=== PATIENT | male | born 1945 ===

== ENCOUNTER 2021-08-01 11:53 | Inpatient (IN) | payer OTHER ==
--- NOTE | 2021-08-01 14:17 | R.PREADM ---
PRE-ADMISSION SCREENING FORM SCREENING DATE AND TIME 08/01/2021 12:33 (CDT) ANTICIPATED REHAB ADMISSION DATE 08/03/2021 REFERRING FACILITY [facility] REFERRAL DATE AND TIME 08/01/2021 12:34 (CDT) REFERRAL ROOM# [id number] ACUTE ADMIT DATE 07/27/2021 Previous Rehabilitation(s): No. ACUTE NURSE CLINICIAN/DC ASSISTANT PROFESSOR OF MARINE BIOLOGY Mer Patterson ATTENDING PHYSICIAN Vangie Zelaya REFERRING PHYSICIAN Vangie Zelaya REHAB FACILITY [facility] CLINICAL LIAISON Ana Paula Rosales PHYSICIAN REVIEWER Dr. Ryan Oleary M.D. MR# [id number] NAME Michele Covarrubias ADDRESS [address] PHONE ( ZIP [address] DATE OF 1945 AGE 76 SSN# [id number] GENDER male MARITAL STATUS RACE white ADMIT FROM 02 - [facility] PRE-HOSPITAL LIVING SETTING 01 - Home (private home/apt. board/care, assisted living, jail, transitional living) HOME TYPE AND DETAILS Type of home: single family house # of levels in the residence: 1 # of steps within the residence: 0 # of steps to enter the residence: 0 PRE-HOSPITAL LIVING WITH Alone FAMILY SUPPORT No PHONE PRIMARY FAMILY CONTACT ON ADM.? no IS PRIMARY FAMILY CONTACT AUTH. REP.? no PHONE 1ST CONTACT ON ADM. no IS 1ST CONTACT AUTH. REP.? no PHONE 2ND CONTACT ON ADM.? no PATIENT EMPLOYMENT STATUS Retired (for age) PATIENT EMPLOYER No Employer PAYOR INFORMATION: 1ST PAYOR NAME Medicare 1ST PAYOR PHONE 1ST PAYOR INJURY/ILLNESS DUE TO ACCIDENT? No ANOTHER GREEN PARTY RESPONSIBLE? No PRIMARY REHAB/ACUTE DIAGNOSIS: Acute Diastolic CHF ONSET DATE 07/27/2021 REHAB IMPAIRMENT CATEGORY (JOSE MANUEL): 14 Cardiac does NOT meet 60% rule PRIMARY DIAGNOSIS-RELATED SURGERIES: None INTERVENTIONS: - Bradycardia Monitor pt cardiac status regularly Regular physical assessment of patient - Acute Kidney Injury Monitor pt renal function/labs Daily Weights Administer medications as indicated Assess areas for edema Monitor pt cardiac/respiratory status regularly - Hyperkalemia Monitor cardiac, respiratory, neuromuscular, renal, and GI status Monitor pt labs Administer medications as indicated - Anasarca Daily Weights Monitor patient BP/HR/lung sounds Assess pt urine Assess for s/s cardiac and respiratory distress Assess areas for edema - Pain Administer prescribed pain medications Anticipate the need for pain medication for optimal pain managment Non pharmacological pain management - UTI Administer prescribed antibiotics, monitor effectiveness - CHF Monitor daily weights Monitor for signs of fluid overload RISK FOR COMPLICATIONS: - CHF Monitor pt for s/s cardiac/respiratory distress - DVT Active and Passive ROM exercises Assist patient with frequent position changes Elevate BLE - Skin Breakdown Encourage ambulation as tolerated Repositioning q 2 hours Use of pillows or foam wedges while in bed - Falls Assess for medication side effects Maintain call light within patient reach for easy access to nursing assistance Provide assistance getting out of bed and with ambulation Provide assistive devices - Fluid Overload Administer prescribed diuretics Monitor pt fluid intake - Stroke Monitor and maintain patient pain level Monitor patient blood pressure - Respiratory Failure Monitor pt O2 sats Administer supplemental O2 as needed - Cardiac Failure Monitor pt cardiac status - Aspiration Monitor for overt s/s of aspiration - Seizure Identify risk factors Administer prescribed medications and supplemental O2 Provide safety measures SUMMARY OF ACUTE HOSPITALIZATION: Pt. is a 76 yo white male. On 07/27/2021 he was admitted to [facility] with diagnosis Acute Diastolic CHF. His impairment category is Cardiac 09 - Cardiac Disorders (09). Pre-morbidly, Pt. was independent/mod-I in Locomotion and Self-Care; and he had good Safety Awareness , Balance, Transfers Control, Sphincter Control, and Endurance. Currently, he has deficits of Locomotion, Safety Awareness, Transfers Control, Sphincter Control, End urance, and Self-Care. Pt. is now referred to [facility] for acute in-patient rehabilitation in order to maximize patient's functional independence in activities of daily living, strength, ROM, and mobi lity. Patient has realistic goal of being discharged at assistance level 7-Ind to reside at Home with Pt s elf. PAST MEDICAL HISTORY CHF CAD HTN Gout Afib COPD PAST SURGICAL HISTORY: None MEDICATION ALLERGIES: No Known Drug Allergies (NKDA) ENVIRONMENTAL ALLERGIES: - Substance Allergies None Known - Other Allergies None Known CODE STATUS: Full code WEIGHT/HEIGHT/BMI: WEIGHT 205 lbs HEIGHT 5' 8" BMI 31.2 DIET: - Diet Type Regular - Diet - Solid Texture Regular - Diet - Liquid Texture Regular - Tube Feed N/A SKIN DIAGRAM: Laceration on Face; extent - small; stage - NS(Not Stageable). Treatment - Per Physician's Orders. REVIEW OF SYSTEMS: - Gen Alert and awake Lying in bed No apparent distress Oriented to: person, time, and place - Vital Signs Temperature: 97.6 F SBP/DBP: 122/67 Pulse: 74 Resp: 20 Vital signs stable, afebrile - CVS RRR VITAL SIGNS Temperature: 97.6 F SBP/DBP: 122/67 Pulse: 74 Resp: 20 Vital signs stable, afebrile 07/31/21 MEDICATIONS/TREATMENT: Other- See attached MAR (Medication Administration Record). CURRENT SPHINCTER CONTROL: Pre-hospital bladder status: unspecified # of bladder accidents in the last 7 days prior to screenin Pre-hospital bowel status: unspecified # of bowel accidents in the last 7 days prior to screenin Last Bowel Movement Date: 08/01/2021 CURRENT LOCOMOTION STATUS: distance walked 2 feet DETAILED CURRENT FUNCTIONAL STATUS: - Bladder accident frequency: 7-Ind - No accidents in the past 7 days - Bowel accident frequency: 7-Ind - No accidents in the past 7 days - Walking score based on distance walked: 0(N/A) score based on distance walked: 1(<=50ft) - Wheelchair score based on distance traveled: 0(N/A) QI SCORES: - Self-Care A. Eating 06-Independent B. Oral hygiene 06-Independent C. Toileting hygiene 01-Dependent E. Shower/bathe self 03-Partial/moderate assistance F. Upper body dressing 06-Independent G. Lower body dressing 03-Partial/moderate assistance H. Putting on/taking off footwear 03-Partial/moderate assistance - Mobility A. Roll left and right 04-Supervision or touching assistance B. Sit to lying 04-Supervision or touching assistance C. Lying to sitting on side of bed 03-Partial/moderate assistance D. Sit to stand 04-Supervision or touching assistance E. Chair/nin-bu-twbns transfer 04-Supervision or touching assistance F. Toilet transfer 04-Supervision or touching assistance G. Car transfer 04-Supervision or touching assistance I. Walk 10 feet 88-Not attempted due to medical condition or safety concerns J. Walk 50 feet with two turns 88-Not attempted due to medical condition or safety concerns K. Walk 150 feet 88-Not attempted due to medical condition or safety concerns L. Walking 10 feet on uneven surfaces 88-Not attempted due to medical condition or safety concerns M. 1 step (curb) 88-Not attempted due to medical condition or safety concerns N. 4 steps 88-Not attempted due to medical condition or safety concerns O. 12 steps 88-Not attempted due to medical condition or safety concerns P. Picking up object 88-Not attempted due to medical condition or safety concerns R. Wheel 50 feet with two turns 09-Not applicable S. Wheel 150 feet 09-Not applicable - Bladder and Bowel Bladder continence 0-Always continent Bowel continence 2-Frequently incontinent - Endurance Fair - Balance Fair - Safety Awareness Fair CURRENT FUNC. DEFICITS: Mobility, Endurance, Balance, Safety Awareness, and Self-Care HISTORY OF FALLS. HAS THE PATIENT HAD TWO OR MORE FALLS IN THE PAST YEAR OR ANY FALL WITH INJURY IN T HE PAST YEAR?: Yes PRIOR SURGERY. DID THE PATIENT HAVE MAJOR SURGERY DURING THE 100 DAYS PRIOR TO ADMISSION?: No THERAPY NOTES FROM ACUTE CARE: Attached. SPECIAL NEEDS: - Safety Concerns Skin breakdown and Fall precautions needed due to skin breakdown risk, Poor balance, Fall history, an d Risk of injury - IV inserted on unknown - Respiratory Supplemental oxygen: 3 liters Nasal [place] - Fall Precautions Due to poor balance PRECAUTIONS: - Fall Precaution Bed alarm TABS alarm Wheel chair alarm - Incontinence Bowel Incontinence - DVT Risk due to restricted mobility, age, and obesity - Bleeding Risk Eliquis - Skin Breakdown Risk due to restricted mobility and age - Cardiac Precaution Monitor blood pressure, heart rate, lower extremity edema, notify MD for shortness of breath or chest pain Monitor patient for excessive elevation of heart rate and blood pressure during therapy PATIENT NEEDS ACTIVE AND ONGOING THERAPEUTIC INTERVENTION OF MULTIPLE THERAPY DISCIPLINES, INCLUDING: - Dietary and Nutrition Adequate Nutrition. Nutritional Education. Nutritional Supplements. - Occupational Therapy Cognitive Retraining. Patient needs Occupational Therapy for a daily minimum of 1.5 hours at least 5 out of 7 days, to improve Activities of Daily Living, including: Eating, Grooming, Bathing, Dressing, Toileting, Toilet Transfers, Community Reintegration, Higher functional activities, Adaptive Equipme nt, Splinting, Household Tasks, and Other activities as determined. Visual Perceptual Training. - Speech Therapy Cognitive Training. Expressive Language Skills. Memory Strategies. Patient needs Speech Therapy for a daily minimum of 1.5 hours at least 5 out of 7 days, to improve: Swallowing, Cognition, Language Ski lls, and Compensatory Strategies. Receptive Language Skills. Speech Intelligibility Training. - Physical Therapy Patient needs Physical Therapy for a daily minimum of 1.5 hours at least 5 out of 7 days, to improve: Mobility, Strengthening, Transfers, Stretching, ROM, Endurance, Ability to manage stairs, Gait, and Balance. PATIENT NEEDS CLOSE MEDICAL SUPERVISION BY A REHABILITATION PHYSICIAN FOR: Coordination of Treatment Team Respiratory/Airway Management Bowel and Bladder Management Medical and Co-Morbidity Management Pain Management PATIENT REQUIRES 24X7 REHAB NURSING FOR MEDICAL AND FUNCTIONAL MGT. OF THE FOLLOWING DEFICITS: Patient requires 24x7 Rehabilitation Nursing for: Pain Issues, Identifying and preventing risk factor s, Monitoring and reporting current medical conditions, Assisting with ambulation and transfer, Maura ting with all ADL-s, Teaching patients about disease process and medications, Family teaching, Provid ing safe environment, Bowel and Bladder Issues, Skin Integrity, and Medication Management PATIENT REQUIRES INTENSIVE, COORDINATED INTERDISCIPLINARY APPROACH TO REHAB: Patient needs Dietary and Nutrition Services for: Adequate Nutrition, Nutritional Supplements, and Nu tritional Education Patient needs Squirt Machine Operator and/or Case Management for: Discharge Planning, Arranging Home Equipmen t or Services, and Family Interventions PATIENT REHAB POTENTIAL: Shira Covarrubias is able and expected to receive 3 hours of individualized therapy daily on at least 5 of ev glenn 7 days Shira Covarrubias's prognosis for significant practical improvement within a reasonable period of time appear s Good Expected level of measurable improvement will be of a practical value to Shira Covarrubias's functional capac ity or adaptations to impairments Has a viable Discharge Plan Medically appropriate; condition is sufficiently stable to participate in intensive rehab program DISCHARGE PLAN: - Estimated Length of Stay (days) 10. - Consensus on plan Discharge plan has been discussed with primary caregiver. Patient/Family is in agreement with the jose manuel n. Primary caregiver is in agreement with the plan. - Patient/Family Goals Return home independently. - Potential barriers to discharge Any lines must be removed or patient/caregiver needs to be educated on line care. - Planned Living Setting Upon Discharge Home, to live alone. Transitional Living. Primary caregiver: Pt self. RECOMMENDED CARE LEVEL: IRF RECOMMENDATION DETAILS: Recommended Admission to Comprehensive Rehabilitation Program to Increase Functional [place] SCREENER'S COMPLETENESS CONFIRMATION: - Screening Confirmation The patient data collection on this preadmission screening form is finished PHYSICIANS REVIEW AND ADMISSION DETERMINATION Admit - Based on my review of the Pre-Admission Screening results, in my medical judgment and experie nce, I concur with the findings and recommend admission to [facility], as this patient requires an IRF level of care. SIGNATURE PANEL: Clinical Liaison - [electronically] signed by Ana Paula Rosales on 08/01/2021 at 13:24 (CDT) Physician Reviewer - [electronically] signed by Dr. Ryan Oleary M.D. on 08/01/2021 at 14:16 (CDT )
[2021-08-02 04:48] LABS: Hematocrit 32.5 % (39.6-49.0); Lymphocytes % 27.9 % (15.3-44.8); MPV 7.7 fL (7.6-11.3); RBC Red Blood Cell Count 3.66 M/uL (4.33-5.43)
[2021-08-02 05:24] LABS: Albumin 2.9 g/dL (3.4-5.0); Magnesium 1.9 mg/dL (1.8-2.4); Prealbumin 15.6 mg/dL (20-40)
[2021-08-02 05:25] LABS: Potassium 2.7 mmol/L (3.5-5.1)
[2021-08-02 05:41] LABS: Urine Appearance Clear (Clear); Urine Bilirubin Negative (Negative); Urine Blood 2+ (Negative); Urine Color Yellow (Yellow); Urine Glucose Negative (Negative); Urine Protein 2+ (Negative); Urine pH 7.5 (5.0-7.0)
[2021-08-02 05:43] LABS: Urine Microscopic Reflex ORDER UMIC
[2021-08-02] MEDS ORDERED: POTASSIUM CL SA 10 MEQ TAB PO ONE ×2 (05:49→06:00)
[2021-08-02 05:54] LABS: Urine Bacteria >50 /HPF (NONE SEEN)
[2021-08-02 05:56] VITALS: BMI 29.4
[2021-08-02] MEDS: APIXABAN 5 MG TABLET PO SCH ×2 (07:09→20:24)
[2021-08-02] MEDS ORDERED: TAMSULOSIN 0.4 MG SR CAP PO SCH (08:00)
[2021-08-02] MEDS ORDERED: ATORVASTATIN 20 MG TAB PO SCH (08:00)
[2021-08-02] MEDS: FUROSEMIDE 40 MG TABLET PO SCH ×2 (08:34→16:58)
[2021-08-02] MEDS: POTASSIUM CL SA 10 MEQ TAB PO SCH ×2 (08:35→16:58)
[2021-08-02] MEDS: allopurinoL 300 MG TAB PO SCH (08:41)
[2021-08-02] MEDS ORDERED: LOPERAMIDE HCL 2 MG CAPSULE PO PRN (13:53)
--- NOTE | 2021-08-02 18:14 | R.HP ---
HISTORY AND PHYSICAL FACILITY: [facility] ENCOUNTER DATE AND TIME: 08/02/2021 18:06 (CDT) MR#: [id number] NAME Michele Covarrubias ADDRESS: [address] [place] [address] CITY: [place]IP [address] PHONE: ( DATE OF : 1945 AGE: 76 SSN# [id number] GENDER: Male DEXTERITY Unknown dexterity MARITAL STATUS RACE White PRE-HOSPITAL LIVING SETTING 01 - Home (private home/apt. board/care, assisted living, [facility], transitional living) PRE-HOSPITAL LIVING WITH Alone ENCOUNTER PHYSICIAN: Dr. Ryan Oleary M.D. REFERRING DOCTOR: evi Zelaya DATE OF ADMISSION: 08/01/2021 22:00 (CDT) REFERRING FACILITY [facility] HOME TYPE AND DETAILS: Type of home: single family house # of levels in the residence: 1 # of steps within the residence: 0 # of steps to enter the residence: 0 ONSET DATE: 07/27/2021 PRIMARY DIAGNOSIS-RELATED SURGERIES: None HISTORY OF PRESENT ILLNESS (HPI): Pt. is a 76 yo white male. On 07/27/2021 he was admitted to [facility] with diagnosis Acute Diastolic CHF. His impairment category is Cardiac 09 - Cardiac Disorders (09). Pre-morbidly, Pt. was independent/mod-I in Locomotion and Self-Care; and he had good Safety Awareness , Balance, Transfers Control, Sphincter Control, and Endurance. Currently, he has deficits of Locomotion, Safety Awareness, Transfers Control, Sphincter Control, End urance, and Self-Care. Pt. is now referred to [facility] for acute in-patient rehabilitation in order to maximize patient's functional independence in activities of daily living, strength, ROM, and mobi lity. Patient has realistic goal of being discharged at assistance level 7-Ind to reside at Home with Pt s elf. MEDICATION ALLERGIES: No Known Drug Allergies (NKDA) ENVIRONMENTAL ALLERGIES: - Substance Allergies None Known - Other Allergies None Known PAST MEDICAL HISTORY: CHF CAD HTN Gout Afib COPD PAST SURGICAL HISTORY: None SOCIAL HISTORY: - Home Living Alone REVIEW OF SYSTEMS: - Gen No Chills Fatigue No Fever - Eyes No Double Vision No itchiness - ENMT No Difficulty Swallowing - CVS No Chest Discomfort No Chest Pain Fatigue No Weight Gain - Resp No Cough Shortness of Breath - GI Continent No Abdominal Pain No Constipation Diarrhea - Continent No Kidney Pain No Painful Urination No Urinary Urgency - MSK No Joint Pain Muscle Cramps Stiffness - Skin No Itching No Rash No Suspicious Lesions - Neuro Coordination Difficulty No Difficulty with Concentration No Memory Loss No Seizures Weakness - Psych No Anxiety No Depression No HIV Exposure No Persistent Infections No Seasonal Allergies - Endo No Cold/Heat Intolerance No Excessive Hunger No Excessive Thirst No Excessive Urination PHYSICAL EXAM - Gen Alert and awake Lying in bed No apparent distress Oriented to: person, time, and place - Skin No skin breakdown. No abnormalities - Eyes No abnormalities - ENMT No abnormalities - Neck No abnormalities - CVS RRR - Chest No abnormalities - Resp Clear to auscultation - Abd Soft - GI nondistended Deferred - No abnormalities - Ext Mild bilateral lower extremity edema. - MSK 4+/5 weakness in both lower extremities. - Neuro No focal deficits - Psych No abnormalities VITAL SIGNS Temperature: 97.8 F SBP/DBP: 164/71 Pulse: 80 Resp: 16 NURSING: - Shower allowing shower PRECAUTIONS: - Fall Precaution Bed alarm TABS alarm Wheel chair alarm - Incontinence Bowel Incontinence - DVT Risk due to restricted mobility, age, and obesity - Bleeding Risk Eliquis - Skin Breakdown Risk due to restricted mobility and age - Cardiac Precaution Monitor blood pressure, heart rate, lower extremity edema, notify MD for shortness of breath or chest pain Monitor patient for excessive elevation of heart rate and blood pressure during therapy ACTIVITIES OOB only with supervision QI SCORES: - Self-Care A. Eating 06-Independent B. Oral hygiene 06-Independent C. Toileting hygiene 01-Dependent E. Shower/bathe self 03-Partial/moderate assistance F. Upper body dressing 06-Independent G. Lower body dressing 03-Partial/moderate assistance H. Putting on/taking off footwear 03-Partial/moderate assistance - Mobility A. Roll left and right 04-Supervision or touching assistance B. Sit to lying 04-Supervision or touching assistance C. Lying to sitting on side of bed 03-Partial/moderate assistance D. Sit to stand 04-Supervision or touching assistance E. Chair/ptb-eg-[id number] transfer 04-Supervision or touching assistance F. Toilet transfer 04-Supervision or touching assistance G. Car transfer 04-Supervision or touching assistance I. Walk 10 feet 88-Not attempted due to medical condition or safety concerns J. Walk 50 feet with two turns 88-Not attempted due to medical condition or safety concerns K. Walk 150 feet 88-Not attempted due to medical condition or safety concerns L. Walking 10 feet on uneven surfaces 88-Not attempted due to medical condition or safety concerns M. 1 step (curb) 88-Not attempted due to medical condition or safety concerns N. 4 steps 88-Not attempted due to medical condition or safety concerns O. 12 steps 88-Not attempted due to medical condition or safety concerns P. Picking up object 88-Not attempted due to medical condition or safety concerns R. Wheel 50 feet with two turns 09-Not applicable S. Wheel 150 feet 09-Not applicable - Bladder and Bowel Bladder continence 0-Always continent Bowel continence 2-Frequently incontinent - Endurance Fair - Balance Fair - Safety Awareness Fair CURRENT FUNC. DEFICITS: Mobility, Endurance, Balance, Safety Awareness, and Self-Care MEDICATIONS: - Other See attached MAR (Medication Administration Record) ASSESSMENT: Pt. is a 76 yo white male.On 07/27/2021 he was admitted to [facility] with diagnosis Acute Di astolic CHF.His impairment category is Cardiac 09 - Cardiac Disorders ().Pre-morbidly, Pt. was ind ependent/mod-I in Locomotion and Self-Care; and he had good Safety Awareness, Balance, Transfers Cont rol, Sphincter Control, and Endurance.Currently, he has deficits of Locomotion, Safety Awareness, Tra nsfers Control, Sphincter Control, Endurance, and Self-Care.Pt. is now referred to [facility] for acute in-patient rehabilitation in order to maximize patient's functional indepen dence in activities of daily living, strength, ROM, and mobility.- Rehab Goal Patient has realistic goal of being discharged at assistance level 7-Ind to reside at Home with Pt s elf. - Physical Therapy Gait dysfunction - to improve, our physical therapists will perform initial evaluation of pt's status upon admission and devise an individualized program for Gait Training, and Wheel Chair mobility Inability to transfer - to improve, our physical therapists will perform initial evaluation of pt's s tatus upon admission and devise an individualized program for Bed mobility Need for home safety evaluation - to improve, our physical therapists will perform initial evaluation of pt's status upon admission and devise an individualized program for Home Evaluation Need in caregiver upon discharge - to improve, our physical therapists will perform initial evaluatio n of pt's status upon admission and devise an individualized program for Caregiver Training Edema - to improve, our physical therapists will perform initial evaluation of pt's status upon admi ssion and devise an individualized program for Elevation Training, and Lymphedema Therapy New precaution - to improve, our physical therapists will perform initial evaluation of pt's status u alin admission and devise an individualized program for Patient precaution education Poor endurance - to improve, our physical therapists will perform initial evaluation of pt's status u alin admission and devise an individualized program for Endurance Training Weakness - to improve, our physical therapists will perform initial evaluation of pt's status upon ad mission and devise an individualized program for Aquatic Therapy, Neuromuscular Reeducation, and Stre ngthening Achieving independence - to improve, our physical therapists will perform initial evaluation of pt's status upon admission and devise an individualized program for Community Reintegration Activities - Occupational Therapy ADL deficits - to improve, our occupation therapists will perform initial evaluation of pt's status u alin admission and devise an individualized program for Bathing, Bed mobility, Community Reintegration , Cooking, Dressing, Eating, Fine Motor Skills, Grooming, Homemaking, Kitchen Mobility, Laundry, Natasha ent Education, Safety Awareness, Splinting - Positioning, Transfers(Toilet, Tub, Shower), and Wheel C hair Management Need for post anesthesia care unit nurse - to improve, our occupation therapists will perform initial evaluation of pt's s tatus upon admission and devise an individualized program for Caregiver Training Weakness - to improve, our occupation therapists will perform initial evaluation of pt's status upon admission and devise an individualized program for Aquatic Therapy, Balance, Endurance, UE ROM, and U E strengthening MEDICAL PLAN: - Diet Type Start Regular - Diet - Liquid Texture Start Regular - Tube Feed Start N/A - Incontinence Bowel Incontinence - Bleeding Risk Eliquis - DVT Risk due to restricted mobility, age, and obesity - Skin Breakdown Risk due to restricted mobility and age - Cardiac Precaution Monitor blood pressure, heart rate, lower extremity edema, notify MD for shortness of breath or ches t pain Monitor patient for excessive elevation of heart rate and blood pressure during therapy - Fall Precaution Bed alarm TABS alarm Wheel chair alarm - Other See attached MAR (Medication Administration Record) - Diet - Solid Texture Regular - Shower shower DISCHARGE PLAN: - Estimated Length of Stay (days) 10. - Consensus on plan Discharge plan has been discussed with primary caregiver. Patient/Family is in agreement with the jose manuel n. Primary caregiver is in agreement with the plan. - Patient/Family Goals Return home independently. - Potential barriers to discharge Any lines must be removed or patient/caregiver needs to be educated on line care. - Planned Living Setting Upon Discharge Home, to live alone. Transitional Living. Primary caregiver: Pt self. SIGNATURE PANEL: (CDT)
--- NOTE | 2021-08-02 18:15 | PAPE ---
POST ADMISSION PHYSICIAN EVALUATION PATIENT: [facility] MR# [id number] REFERRING DOCTOR evi Zelaya EVALUATION DATE AND TIME 08/02/2021 18:13 (CDT) NAME Michele Covarrubias DATE OF 1945 AGE 76 PHONE ( SSN# [id number] GENDER male EVALUATING PHYSICIAN Dr. Ryan Oleary M.D. ADMISSION DIAGNOSIS: Acute Diastolic CHF ONSET DATE 07/27/2021 POST-ADMISSION FUNCTIONAL/MEDICAL STATUS: - Bladder Same accident frequency: 7-Ind - No accidents in the past 7 days - Bowel Same accident frequency: 7-Ind - No accidents in the past 7 days - Walking Same score based on distance walked: 0(N/A) Same score based on distance walked: 1(<=50ft) - Wheelchair Same score based on distance traveled: 0(N/A) STATUS CHANGE EVALUATION: No change in Functional or Medical Status is identified compared with Pre-Admission screening. PATIENT NEEDS CLOSE MEDICAL SUPERVISION BY A REHABILITATION PHYSICIAN FOR: Coordination of Treatment Team Respiratory/Airway Management Bowel and Bladder Management Medical and Co-Morbidity Management Pain Management PATIENT REQUIRES 24X7 REHAB NURSING FOR MEDICAL AND FUNCTIONAL MGT. OF THE FOLLOWING DEFICITS: Patient requires 24x7 Rehabilitation Nursing for: Pain Issues, Identifying and preventing risk factor s, Monitoring and reporting current medical conditions, Assisting with ambulation and transfer, Maura ting with all ADL-s, Teaching patients about disease process and medications, Family teaching, Provid ing safe environment, Bowel and Bladder Issues, Skin Integrity, and Medication Management PATIENT REQUIRES INTENSIVE, COORDINATED INTERDISCIPLINARY APPROACH TO REHAB: Patient needs Dietary and Nutrition Services for: Adequate Nutrition, Nutritional Supplements, and Nu tritional Education Patient needs Sports Therapist and/or Case Management for: Discharge Planning, Arranging Home Equipmen t or Services, and Family Interventions LIST OF IDENTIFIED AND POTENTIAL PROBLEMS: Alteration in air exchange Alteration in leisure activities Bladder, Incontinence Bowel, Incontinence Falls, Actual or Potential Infection, Actual or Potential Mobility Impaired Pain, Alteration in Comfort Self Care Deficit Skin Integrity, Actual or Potential Urinary Tract Infection (UTI), Actual or Potential RISK FOR COMPLICATIONS - CHF Monitor pt for s/s cardiac/respiratory distress. - DVT Active and Passive ROM exercises. Assist patient with frequent position changes. Elevate BLE. - Skin Breakdown Encourage ambulation as tolerated. Repositioning q 2 hours. Use of pillows or foam wedges while in be d. - Falls Assess for medication side effects. Maintain call light within patient reach for easy access to nursi ng assistance. Provide assistance getting out of bed and with ambulation. Provide assistive devices. - Fluid Overload Administer prescribed diuretics. Monitor pt fluid intake. - Stroke Monitor and maintain patient pain level. Monitor patient blood pressure. - Respiratory Failure Monitor pt O2 sats. Administer supplemental O2 as needed. - Cardiac Failure Monitor pt cardiac status. - Aspiration Monitor for overt s/s of aspiration. - Seizure Identify risk factors. Administer prescribed medications and supplemental O2. Provide safety measures . INTERVENTIONS - Bradycardia Monitor pt cardiac status regularly. Regular physical assessment of patient. - Acute Kidney Injury - Hyperkalemia - Anasarca - Pain Administer prescribed pain medications. Anticipate the need for pain medication for optimal pain mary gment. Non pharmacological pain management. - UTI Administer prescribed antibiotics, monitor effectiveness. - CHF PATIENT COULD BE AT RISK FOR COMPLICATIONS FROM ADVERSE MEDICAL CONDITIONS DUE TO HIS/HER COMORBIDITI ES AND THE RIGORS OF THE INTENSIVE REHABILLITATION PROGRAM. METHODS OR INTERVENTIONS TO AVOID COMPLIC ATIONS INCLUDE: - Infection Clinical staff to assess and manage the signs and symptoms of infection including fever, redness, war mth, etc. - Urinary Tract Infection - Falls Patient will be evaluated for Fall Precautions and will be placed on Fall Precautions as indicated pe r protocol. - Skin Breakdown Nursing will assess skin daily using assessment tool and will place on Skin Breakdown Precautions as indicated per protocol. - Pain Clinical staff may employ non-medication methods such as massage, distraction, decrease stimulus, etc . as needed. Clinical staff will assess patient's pain level every shift per protocol to assess and e nsure pain management effectiveness. Medications will be given and the pain level re-assessed. PRELIMINARY PLAN OF CARE: - Physical Therapy Patient needs Physical Therapy for a daily minimum of 1.5 hours at least 5 out of 7 days, to improve: Mobility, Strengthening, Transfers, Stretching, ROM, Endurance, Ability to manage stairs, Gait, and Balance. - Speech Therapy Patient needs Speech Therapy for a daily minimum of 0.5 hours at least 5 out of 7 days, to improve: S wallowing, Cognition, Language Skills, and Compensatory Strategies. - Rehabilitation Nursing Patient requires 24x7 Rehabilitation Nursing for: Pain Issues, Identifying and preventing risk factor s, Monitoring and reporting current medical conditions, Assisting with ambulation and transfer, Maura ting with all ADL-s, Teaching patients about disease process and medications, Family teaching, Provid ing safe environment, Bowel and Bladder Issues, Skin Integrity, and Medication Management. Patient needs Sports Therapist and/or Case Management for: Discharge Planning, Arranging Home Equipmen t or Services, and Family Interventions. - Dietary and Nutrition Services Patient needs Dietary and Nutrition Services for: Adequate Nutrition, Nutritional Supplements, and Nu tritional Education. - Occupational Therapy Patient needs Occupational Therapy for a daily minimum of 1.5 hours at least 5 out of 7 days, to impr ove Activities of Daily Living, including: Eating, Grooming, Bathing, Dressing, Toileting, Toilet Tra nsfers, Community Reintegration, Higher functional activities, Adaptive Equipment, Splinting, Househo ld Tasks, and Other activities as determined. QI SCORES: - Self-Care A. Eating 06-Independent B. Oral hygiene 06-Independent C. Toileting hygiene 01-Dependent E. Shower/bathe self 03-Partial/moderate assistance F. Upper body dressing 06-Independent G. Lower body dressing 03-Partial/moderate assistance H. Putting on/taking off footwear 03-Partial/moderate assistance - Mobility A. Roll left and right 04-Supervision or touching assistance B. Sit to lying 04-Supervision or touching assistance C. Lying to sitting on side of bed 03-Partial/moderate assistance D. Sit to stand 04-Supervision or touching assistance E. Chair/[id number] transfer 04-Supervision or touching assistance F. Toilet transfer 04-Supervision or touching assistance G. Car transfer 04-Supervision or touching assistance I. Walk 10 feet 88-Not attempted due to medical condition or safety concerns J. Walk 50 feet with two turns 88-Not attempted due to medical condition or safety concerns K. Walk 150 feet 88-Not attempted due to medical condition or safety concerns L. Walking 10 feet on uneven surfaces 88-Not attempted due to medical condition or safety concerns M. 1 step (curb) 88-Not attempted due to medical condition or safety concerns N. 4 steps 88-Not attempted due to medical condition or safety concerns O. 12 steps 88-Not attempted due to medical condition or safety concerns P. Picking up object 88-Not attempted due to medical condition or safety concerns R. Wheel 50 feet with two turns 09-Not applicable S. Wheel 150 feet 09-Not applicable - Bladder and Bowel Bladder continence 0-Always continent Bowel continence 2-Frequently incontinent - Endurance Fair - Balance Fair - Safety Awareness Fair POTENTIAL FUNCTIONAL GOALS FOR PATIENT TO ACHIEVE BY DISCHARGE: - Safety Precaution Patient will remain free from falls or injury at time of discharge. - Bed Mobility Patient will perform bed mobility at 4-Mickey level of assistance. - Transfers Patient will complete transfers from bed to chair at 4-Mickey level of assistance. - Mobility Patient will ambulate 150 ft with 4-Mickey level of assistance with RW. PATIENT REHAB POTENTIAL Shira Covarrubias is able and expected to receive 3 hours of individualized therapy daily on at least 5 of ev glenn 7 days Shira Covarrubias's prognosis for significant practical improvement within a reasonable period of time appear s Good Expected level of measurable improvement will be of a practical value to Shira Covarrubias's functional capac ity or adaptations to impairments Has a viable Discharge Plan Medically appropriate; condition is sufficiently stable to participate in intensive rehab program DISCHARGE PLAN: - Estimated Length of Stay (days) 10. - Consensus on plan Discharge plan has been discussed with primary caregiver. Patient/Family is in agreement with the jose manuel n. Primary caregiver is in agreement with the plan. - Patient/Family Goals Return home independently. - Potential barriers to discharge Any lines must be removed or patient/caregiver needs to be educated on line care. - Planned Living Setting Upon Discharge Home, to live alone. Transitional Living. Primary caregiver: Pt self. CONCLUSION ON REHABILITATION NECESSITY: I have evaluated patient's pre-admission functional status and, comparing it to the patient's post-ad mission functional status now, I conclude that the pre-admission assessment was accurate. Patient's c ondition on admission supports the medical necessity of admission to IR[facility]. It is safe to proceed with patient's therapy program. SIGNATURE PANEL: (CDT)
[2021-08-02] MEDS: ATORVASTATIN 20 MG TAB PO SCH (20:24)
[2021-08-02] MEDS: TERAZOSIN HCL 1 MG CAP PO SCH (20:25)
[2021-08-02] MEDS: TAMSULOSIN 0.4 MG SR CAP PO SCH (20:25)
[2021-08-03] MEDS: APIXABAN 5 MG TABLET PO SCH ×2 (07:04→19:36)
[2021-08-03] MEDS: POTASSIUM CL SA 10 MEQ TAB PO SCH ×2 (07:54→16:33)
[2021-08-03] MEDS: FUROSEMIDE 40 MG TABLET PO SCH ×2 (07:55→16:45)
[2021-08-03] MEDS: allopurinoL 300 MG TAB PO SCH (07:55)
--- NOTE | 2021-08-03 10:13 | P.RH.PN ---
Estimated Length of Stay: 11 Expected Discharge Date: 08/12/21 Discharge Disposition Plan: Home Family Support: Yes Residential Goal: Mobility, Transfers, Self Care Vital Signs: Last Vital Signs Temp 97.3 F 08/03/21 07:59 Pulse 66 08/03/21 07:59 Resp 17 08/03/21 07:59 BP 172/60 H 08/03/21 07:59 Pulse Ox 97 08/03/21 07:59 Laboratory: Laboratory Last Values WBC 3.5 K/uL (4.3-10.9) L 08/02/21 04:32 RBC 3.66 M/uL (4.33-5.43) L 08/02/21 04:32 Hgb 10.8 g/dL (13.6-17.9) L 08/02/21 04:32 Hct 32.5 % (39.6-49.0) L 08/02/21 04:32 MCV 88.7 fL (80-100) 08/02/21 04:32 MCH 29.5 pg (27.0-35.0) 08/02/21 04:32 MCHC 33.2 g/dL (32.0-36.0) 08/02/21 04:32 RDW 17.0 % (12.1-15.2) H 08/02/21 04:32 Plt Count 115 K/uL (152-406) L 08/02/21 04:32 MPV 7.7 fL (7.6-11.3) 08/02/21 04:32 Neutrophils % 59.0 % (41.7-73.7) 08/02/21 04:32 Lymphocytes % 27.9 % (15.3-44.8) 08/02/21 04:32 Monocytes % 8.7 % (3.3-12.3) 08/02/21 04:32 Eosinophils % 3.9 % (0-4.4) 08/02/21 04:32 Basophils % 0.5 % (0-1.3) 08/02/21 04:32 Absolute Neutrophils 2.1 K/uL (1.8-8.0) 08/02/21 04:32 Absolute Lymphocytes 1.0 K/uL (0.7-4.9) 08/02/21 04:32 Absolute Monocytes 0.3 K/uL (0.1-1.3) 08/02/21 04:32 Absolute Eosinophils 0.1 K/uL (0-0.5) 08/02/21 04:32 Absolute Basophils 0.0 K/uL (0-0.5) 08/02/21 04:32 Sodium 137 mmol/L (136-145) 08/03/21 06:12 Potassium 3.0 mmol/L (3.5-5.1) L 08/03/21 06:12 Chloride 97 mmol/L (98-107) L 08/03/21 06:12 Carbon Dioxide 38 mmol/L (21-32) H 08/03/21 06:12 Anion Gap 5.0 mEq/L (5.0-15.0) 08/03/21 06:12 BUN 17 mg/dL (7-18) 08/03/21 06:12 Creatinine 0.94 mg/dL (0.55-1.3) 08/03/21 06:12 Est GFR (CKD-EPI) 83 ml/min (=/>90) L 08/03/21 06:12 Glucose 94 mg/dL (74-106) 08/03/21 06:12 Calcium 8.6 mg/dL (8.5-10.1) 08/03/21 06:12 Magnesium 1.9 mg/dL (1.8-2.4) 08/02/21 04:32 Albumin 2.9 g/dL (3.4-5.0) L 08/02/21 04:32 Prealbumin 15.6 mg/dL (20-40) L 08/02/21 04:32 Urine Color Yellow (Yellow) 08/02/21 05:38 Urine Appearance Clear (Clear) 08/02/21 05:38 Urine pH 7.5 (5.0-7.0) H 08/02/21 05:38 Ur Specific [place] 1.020 (1.005-1.030) 08/02/21 05:38 Glucose (UA)(Auto) Negative (Negative) 08/02/21 05:38 Urine Ketones Negative (Negative) 08/02/21 05:38 Urine Blood 2+ (Negative) H 08/02/21 05:38 Urine Nitrite Negative (Negative) 08/02/21 05:38 Urine Bilirubin Negative (Negative) 08/02/21 05:38 Urine Urobilinogen 2.0 mg/dL (0.2-1.0) H 08/02/21 05:38 Ur Leukocyte Esterase 2+ (Negative) H 08/02/21 05:38 Urine RBC 10-20 /HPF (NONE SEEN) H 08/02/21 05:38 Urine WBC 10-20 /HPF (<5) H 08/02/21 05:38 Ur Squamous Epith Cells [employer] 08/02/21 05:38 Urine Bacteria >50 /HPF (NONE SEEN) H 08/02/21 05:38 Urine Culture Reflexed Not needed 08/02/21 05:38 Urine Total Protein 2+ (Negative) H 08/02/21 05:38 SARS-CoV-2 Rap RNA(RT-PCR) Negative (NEGATIVE) 08/01/21 23:00 Weight: 193 lb 4.8 oz Wound Present: Yes Closed Surgical Incision Present: No Negative Pressure Wound Therapy Present: No Physician Update: Min assist bed mobility, 250' with CGA using RW. Mild aphasia with speech therapy. Grooming, bathing, upper body dressing at setup. Max assistance for toileting. Summary: Patient's care plan and penitentiary goals have been reviewed and revised as necessary. Please see the Rehabilitation Signature page for all necessary signatures.
[2021-08-03] MEDS ORDERED: POTASSIUM CL SA 10 MEQ TAB PO ONE (12:00)
[2021-08-03] MEDS: CRANBERRY FRUIT EXTRACT 400 MG CAP PO SCH (19:36)
[2021-08-03] MEDS: TAMSULOSIN 0.4 MG SR CAP PO SCH (19:36)
[2021-08-03] MEDS: DOCUSATE NA/SENNA CONC 1 TAB PO PRN (19:37)
[2021-08-03] MEDS: ATORVASTATIN 20 MG TAB PO SCH (19:37)
[2021-08-03] MEDS: TERAZOSIN HCL 1 MG CAP PO SCH (19:37)
[2021-08-03] MEDS ORDERED: TRAZODONE 50 MG TABLET PO PRN (21:56)
[2021-08-03] MEDS: ACETAMINOPHEN 500 MG TAB PO PRN (22:49)
[2021-08-04] MEDS: FUROSEMIDE 40 MG TABLET PO SCH ×2 (09:12→16:55)
[2021-08-04] MEDS: CRANBERRY FRUIT EXTRACT 400 MG CAP PO SCH ×2 (09:12→19:28)
[2021-08-04] MEDS: POTASSIUM CL SA 10 MEQ TAB PO SCH ×2 (09:12→16:55)
[2021-08-04] MEDS: allopurinoL 300 MG TAB PO SCH (09:12)
[2021-08-04] MEDS: APIXABAN 5 MG TABLET PO SCH ×2 (09:12→20:11)
[2021-08-04] MEDS: TERAZOSIN HCL 1 MG CAP PO SCH (19:27)
[2021-08-04] MEDS: ACETAMINOPHEN 500 MG TAB PO PRN (19:28)
[2021-08-04] MEDS: TAMSULOSIN 0.4 MG SR CAP PO SCH (19:28)
[2021-08-04] MEDS: ATORVASTATIN 20 MG TAB PO SCH (19:28)
[2021-08-04] MEDS: MELATONIN 3 MG TABLET PO PRN (19:29)
[2021-08-05 06:29] LABS: Absolute Lymphocytes (CBC) 0.9 K/uL (0.7-4.9); Hematocrit 33.4 % (39.6-49.0); MPV 7.7 fL (7.6-11.3)
[2021-08-05 06:34] LABS: Potassium 3.4 mmol/L (3.5-5.1)
[2021-08-05] MEDS: allopurinoL 300 MG TAB PO SCH (08:49)
[2021-08-05] MEDS: APIXABAN 5 MG TABLET PO SCH ×2 (08:50→19:33)
[2021-08-05] MEDS: CRANBERRY FRUIT EXTRACT 400 MG CAP PO SCH ×2 (08:50→19:33)
[2021-08-05] MEDS: FUROSEMIDE 40 MG TABLET PO SCH ×2 (08:51→17:10)
[2021-08-05] MEDS: POTASSIUM CL SA 10 MEQ TAB PO SCH ×2 (08:51→16:59)
[2021-08-05] MEDS: TERAZOSIN HCL 1 MG CAP PO SCH (19:33)
[2021-08-05] MEDS: lisinopriL 20 MG TAB PO SCH (19:33)
[2021-08-05] MEDS: TAMSULOSIN 0.4 MG SR CAP PO SCH (19:34)
[2021-08-05] MEDS: MELATONIN 3 MG TABLET PO PRN (19:34)
[2021-08-05] MEDS: ATORVASTATIN 20 MG TAB PO SCH (19:34)
[2021-08-06] MEDS: APIXABAN 5 MG TABLET PO SCH ×2 (07:15→19:34)
[2021-08-06] MEDS: allopurinoL 300 MG TAB PO SCH (07:15)
[2021-08-06] MEDS: POTASSIUM CL SA 10 MEQ TAB PO SCH ×2 (07:15→16:38)
[2021-08-06] MEDS: CRANBERRY FRUIT EXTRACT 400 MG CAP PO SCH ×2 (07:15→19:33)
[2021-08-06] MEDS: lisinopriL 20 MG TAB PO SCH (07:20)
[2021-08-06] MEDS: FUROSEMIDE 40 MG TABLET PO SCH ×2 (09:12→16:39)
--- NOTE | 2021-08-06 17:46 | R.PN ---
PROGRESS NOTES ENCOUNTER DATE AND TIME: 08/06/2021 10:47 (CDT) NAME Michele Covarrubias DATE OF : 1945 DATE OF ADMISSION: 08/01/2021 22:00 (CDT) Acute Diastolic CHFCHIEF COMPLAINT: Acute diastolic CHF, fatigue SUBJECTIVE: Pt denied any Shortness of Breath. Pt denied any depression. EBC 6.5, fHgb 11.3, Plt 136, K+ 3.4, prealbumin 15.6. Ambulated 1000' with standby assistance using a rolling walker. Self-propelled wheelchair 500' with s tandby assistance. VITAL SIGNS Temperature: 98.0 F SBP/DBP: 139/67 Pulse: 70 Resp: 16 MEDICATION ALLERGIES: No Known Drug Allergies (NKDA) ENVIRONMENTAL ALLERGIES: - Substance Allergies None Known - Other Allergies None Known NURSING: - Shower allowing shower PRECAUTIONS: - Fall Precaution Bed alarm TABS alarm Wheel chair alarm - Incontinence Bowel Incontinence - DVT Risk due to restricted mobility, age, and obesity - Bleeding Risk Eliquis - Skin Breakdown Risk due to restricted mobility and age - Cardiac Precaution Monitor blood pressure, heart rate, lower extremity edema, notify MD for shortness of breath or chest pain Monitor patient for excessive elevation of heart rate and blood pressure during therapy ACTIVITIES OOB only with supervision THERAPIES: - Dietary and Nutrition Adequate Nutrition. Nutritional Education. Nutritional Supplements. - Occupational Therapy Cognitive Retraining. Patient needs Occupational Therapy for a daily minimum of 1.5 hours at least 5 out of 7 days, to improve Activities of Daily Living, including: Eating, Grooming, Bathing, Dressing, Toileting, Toilet Transfers, Community Reintegration, Higher functional activities, Adaptive Equipme nt, Splinting, Household Tasks, and Other activities as determined. Visual Perceptual Training. - Speech Therapy Cognitive Training. Expressive Language Skills. Memory Strategies. Patient needs Speech Therapy for a daily minimum of 1.5 hours at least 5 out of 7 days, to improve: Swallowing, Cognition, Language Ski lls, and Compensatory Strategies. Receptive Language Skills. Speech Intelligibility Training. - Physical Therapy Patient needs Physical Therapy for a daily minimum of 1.5 hours at least 5 out of 7 days, to improve: Mobility, Strengthening, Transfers, Stretching, ROM, Endurance, Ability to manage stairs, Gait, and Balance. PHYSICAL EXAM - Gen Alert and awake Lying in bed No apparent distress Oriented to: person, time, and place - Skin No skin breakdown. No abnormalities - Eyes No abnormalities - ENMT No abnormalities - Neck No abnormalities - CVS RRR - Chest No abnormalities - Resp Clear to auscultation - Abd Soft - GI nondistended Deferred - No abnormalities - Ext Mild bilateral lower extremity edema. - MSK 4+/5 weakness in both lower extremities. - Neuro No focal deficits - Psych No abnormalities ASSESSMENT: Pt. is a 76 yo white male.On 07/27/2021 he was admitted to [facility] with diagnosis Acute Di astolic CHF.His impairment category is Cardiac 09 - Cardiac Disorders ().Pre-morbidly, Pt. was ind ependent/mod-I in Locomotion and Self-Care; and he had good Safety Awareness, Balance, Transfers Cont rol, Sphincter Control, and Endurance.Currently, he has deficits of Locomotion, Safety Awareness, Tra nsfers Control, Sphincter Control, Endurance, and Self-Care.Pt. is now referred to [facility] for acute in-patient rehabilitation in order to maximize patient's functional indepen dence in activities of daily living, strength, ROM, and mobility.- Rehab Goal Patient has realistic goal of being discharged at assistance level 7-Ind to reside at Home with Pt s elf. MDM/PLAN: - Physical Therapy Gait dysfunction - to improve, our physical therapists will perform initial evaluation of pt's statu s upon admission and devise an individualized program for Gait Training, and Wheel Chair mobility Inability to transfer - to improve, our physical therapists will perform initial evaluation of pt's status upon admission and devise an individualized program for Bed mobility Need for home safety evaluation - to improve, our physical therapists will perform initial evaluatio n of pt's status upon admission and devise an individualized program for Home Evaluation Need in caregiver upon discharge - to improve, our physical therapists will perform initial evaluati on of pt's status upon admission and devise an individualized program for Caregiver Training Edema - to improve, our physical therapists will perform initial evaluation of pt's status upon admis francisca and devise an individualized program for Elevation Training, and Lymphedema Therapy New precaution - to improve, our physical therapists will perform initial evaluation of pt's status upon admission and devise an individualized program for Patient precaution education Poor endurance - to improve, our physical therapists will perform initial evaluation of pt's status upon admission and devise an individualized program for Endurance Training Weakness - to improve, our physical therapists will perform initial evaluation of pt's status upon a dmission and devise an individualized program for Aquatic Therapy, Neuromuscular Reeducation, and Str engthening Achieving independence - to improve, our physical therapists will perform initial evaluation of pt's status upon admission and devise an individualized program for Community Reintegration Activities - Occupational Therapy ADL deficits - to improve, our occupation therapists will perform initial evaluation of pt's status upon admission and devise an individualized program for Bathing, Bed mobility, Community Reintegratio n, Cooking, Dressing, Eating, Fine Motor Skills, Grooming, Homemaking, Kitchen Mobility, Laundry, Pat ient Education, Safety Awareness, Splinting - Positioning, Transfers(Toilet, Tub, Shower), and Wheel Chair Management Need for wound care specialist - to improve, our occupation therapists will perform initial evaluation of pt's status upon admission and devise an individualized program for Caregiver Training Weakness - to improve, our occupation therapists will perform initial evaluation of pt's status upon admission and devise an individualized program for Aquatic Therapy, Balance, Endurance, UE ROM, and UE strengthening - Other See attached MAR (Medication Administration Record) - Diet Type Continue Regular - Diet - Liquid Texture Continue Regular - Tube Feed Continue N/A - Incontinence Bowel Incontinence - Bleeding Risk Eliquis - DVT Risk due to restricted mobility, age, and obesity - Skin Breakdown Risk due to restricted mobility and age - Cardiac Precaution Monitor blood pressure, heart rate, lower extremity edema, notify MD for shortness of breath or chest pain Monitor patient for excessive elevation of heart rate and blood pressure during therapy - Fall Precaution Bed alarm TABS alarm Wheel chair alarm - Diet - Solid Texture Continue Regular - Shower allowing shower FUNCTIONAL STATUS: UPDATED AT WEEKLY TEAM CONFERENCE - Bladder Same accident frequency: 7-Ind - No accidents in the past 7 days - Bowel Same accident frequency: 7-Ind - No accidents in the past 7 days - Walking Same score based on distance walked: 0(N/A) Same score based on distance walked: 1(<=50ft) - Wheelchair Same score based on distance traveled: 0(N/A) FUNCTIONAL STATUS: - Self-Care A. Eating Ind B. Grooming Alberto C. Bathing modA D. Dressing - Upper Mickey E. Dressing - Lower modA F. Toileting sup - Sphincter Control G. Bladder control Alberto H. Bowel control Alberto - Transfers Control I. Bed/Chair/Wheelchair Mickey J. Toilet Mickey K. Tub/Shower modA - Locomotion L. Walk/Wheelchair (B) Mickey M. Stairs maxA - Communication N. Comprehension (B) Alberto O. Expression (B) Alberto - Social Cognition P. Social Interaction Ind Q. Problem Solving Ind R. Memory Alebrto - Endurance Good - Balance Good - Safety Awareness Good QI SCORES: - Self-Care A. Eating 06-Independent B. Oral hygiene 06-Independent C. Toileting hygiene 01-Dependent E. Shower/bathe self 03-Partial/moderate assistance F. Upper body dressing 06-Independent G. Lower body dressing 03-Partial/moderate assistance H. Putting on/taking off footwear 03-Partial/moderate assistance - Mobility A. Roll left and right 04-Supervision or touching assistance B. Sit to lying 04-Supervision or touching assistance C. Lying to sitting on side of bed 03-Partial/moderate assistance D. Sit to stand 04-Supervision or touching assistance E. Chair/pmc-cl-eusme transfer 04-Supervision or touching assistance F. Toilet transfer 04-Supervision or touching assistance G. Car transfer 04-Supervision or touching assistance I. Walk 10 feet 88-Not attempted due to medical condition or safety concerns J. Walk 50 feet with two turns 88-Not attempted due to medical condition or safety concerns K. Walk 150 feet 88-Not attempted due to medical condition or safety concerns L. Walking 10 feet on uneven surfaces 88-Not attempted due to medical condition or safety concerns M. 1 step (curb) 88-Not attempted due to medical condition or safety concerns N. 4 steps 88-Not attempted due to medical condition or safety concerns O. 12 steps 88-Not attempted due to medical condition or safety concerns P. Picking up object 88-Not attempted due to medical condition or safety concerns R. Wheel 50 feet with two turns 09-Not applicable S. Wheel 150 feet 09-Not applicable - Bladder and Bowel Bladder continence 0-Always continent Bowel continence 2-Frequently incontinent - Endurance Fair - Balance Fair - Safety Awareness Fair CURRENT FUNC. DEFICITS: Mobility, Endurance, Balance, Safety Awareness, and Self-Care SIGNATURE PANEL: (CDT)
[2021-08-06] MEDS: ATORVASTATIN 20 MG TAB PO SCH (19:33)
[2021-08-06] MEDS: TAMSULOSIN 0.4 MG SR CAP PO SCH (19:33)
[2021-08-06] MEDS: TERAZOSIN HCL 1 MG CAP PO SCH (19:34)
[2021-08-07] MEDS: SIMETHICONE 80 MG TAB PO PRN ×2 (04:34→14:46)
[2021-08-07] MEDS: allopurinoL 300 MG TAB PO SCH (07:32)
[2021-08-07] MEDS: lisinopriL 20 MG TAB PO SCH (07:32)
[2021-08-07] MEDS: CRANBERRY FRUIT EXTRACT 400 MG CAP PO SCH ×2 (07:33→19:46)
[2021-08-07] MEDS: POTASSIUM CL SA 10 MEQ TAB PO SCH ×2 (07:33→16:48)
[2021-08-07] MEDS: FUROSEMIDE 40 MG TABLET PO SCH ×2 (07:33→16:48)
[2021-08-07] MEDS: APIXABAN 5 MG TABLET PO SCH ×2 (07:34→19:47)
--- NOTE | 2021-08-07 18:05 | R.PN ---
PROGRESS NOTES ENCOUNTER DATE AND TIME: 08/07/2021 18:03 (CDT) NAME Michele Covarrubias DATE OF : 1945 DATE OF ADMISSION: 08/01/2021 22:00 (CDT) Acute Diastolic CHFCHIEF COMPLAINT: Acute diastolic CHF, fatigue SUBJECTIVE: Pt denied any Shortness of Breath. Pt denied any depression. EBC 6.5, fHgb 11.3, Plt 136, K+ 3.4, prealbumin 15.6. Ambulated 500' with standby assistance using a rolling walker. VITAL SIGNS Temperature: 98.4 F SBP/DBP: 151/69 Pulse: 75 Resp: 16 MEDICATION ALLERGIES: No Known Drug Allergies (NKDA) ENVIRONMENTAL ALLERGIES: - Substance Allergies None Known - Other Allergies None Known NURSING: - Shower allowing shower PRECAUTIONS: - Fall Precaution Bed alarm TABS alarm Wheel chair alarm - Incontinence Bowel Incontinence - DVT Risk due to restricted mobility, age, and obesity - Bleeding Risk Eliquis - Skin Breakdown Risk due to restricted mobility and age - Cardiac Precaution Monitor blood pressure, heart rate, lower extremity edema, notify MD for shortness of breath or chest pain Monitor patient for excessive elevation of heart rate and blood pressure during therapy ACTIVITIES OOB only with supervision THERAPIES: - Dietary and Nutrition Adequate Nutrition. Nutritional Education. Nutritional Supplements. - Occupational Therapy Cognitive Retraining. Patient needs Occupational Therapy for a daily minimum of 1.5 hours at least 5 out of 7 days, to improve Activities of Daily Living, including: Eating, Grooming, Bathing, Dressing, Toileting, Toilet Transfers, Community Reintegration, Higher functional activities, Adaptive Equipme nt, Splinting, Household Tasks, and Other activities as determined. Visual Perceptual Training. - Speech Therapy Cognitive Training. Expressive Language Skills. Memory Strategies. Patient needs Speech Therapy for a daily minimum of 1.5 hours at least 5 out of 7 days, to improve: Swallowing, Cognition, Language Ski lls, and Compensatory Strategies. Receptive Language Skills. Speech Intelligibility Training. - Physical Therapy Patient needs Physical Therapy for a daily minimum of 1.5 hours at least 5 out of 7 days, to improve: Mobility, Strengthening, Transfers, Stretching, ROM, Endurance, Ability to manage stairs, Gait, and Balance. PHYSICAL EXAM - Gen Alert and awake Lying in bed No apparent distress Oriented to: person, time, and place - Skin No skin breakdown. No abnormalities - Eyes No abnormalities - ENMT No abnormalities - Neck No abnormalities - CVS RRR - Chest No abnormalities - Resp Clear to auscultation - Abd Soft - GI nondistended Deferred - No abnormalities - Ext Mild bilateral lower extremity edema. - MSK 4+/5 weakness in both lower extremities. - Neuro No focal deficits - Psych No abnormalities ASSESSMENT: Pt. is a 76 yo white male.On 07/27/2021 he was admitted to [facility] with diagnosis Acute Di astolic CHF.His impairment category is Cardiac 09 - Cardiac Disorders ().Pre-morbidly, Pt. was ind ependent/mod-I in Locomotion and Self-Care; and he had good Safety Awareness, Balance, Transfers Cont rol, Sphincter Control, and Endurance.Currently, he has deficits of Locomotion, Safety Awareness, Tra nsfers Control, Sphincter Control, Endurance, and Self-Care.Pt. is now referred to [facility] for acute in-patient rehabilitation in order to maximize patient's functional indepen dence in activities of daily living, strength, ROM, and mobility.- Rehab Goal Patient has realistic goal of being discharged at assistance level 7-Ind to reside at Home with Pt s elf. MDM/PLAN: - Physical Therapy Gait dysfunction - to improve, our physical therapists will perform initial evaluation of pt's statu s upon admission and devise an individualized program for Gait Training, and Wheel Chair mobility Inability to transfer - to improve, our physical therapists will perform initial evaluation of pt's status upon admission and devise an individualized program for Bed mobility Need for home safety evaluation - to improve, our physical therapists will perform initial evaluatio n of pt's status upon admission and devise an individualized program for Home Evaluation Need in caregiver upon discharge - to improve, our physical therapists will perform initial evaluati on of pt's status upon admission and devise an individualized program for Caregiver Training Edema - to improve, our physical therapists will perform initial evaluation of pt's status upon admi ssion and devise an individualized program for Elevation Training, and Lymphedema Therapy New precaution - to improve, our physical therapists will perform initial evaluation of pt's status upon admission and devise an individualized program for Patient precaution education Poor endurance - to improve, our physical therapists will perform initial evaluation of pt's status upon admission and devise an individualized program for Endurance Training Weakness - to improve, our physical therapists will perform initial evaluation of pt's status upon a dmission and devise an individualized program for Aquatic Therapy, Neuromuscular Reeducation, and Str engthening Achieving independence - to improve, our physical therapists will perform initial evaluation of pt's status upon admission and devise an individualized program for Community Reintegration Activities - Occupational Therapy ADL deficits - to improve, our occupation therapists will perform initial evaluation of pt's status upon admission and devise an individualized program for Bathing, Bed mobility, Community Reintegratio n, Cooking, Dressing, Eating, Fine Motor Skills, Grooming, Homemaking, Kitchen Mobility, Laundry, Pat ient Education, Safety Awareness, Splinting - Positioning, Transfers(Toilet, Tub, Shower), and Wheel Chair Management Need for manager medicare marketing - to improve, our occupation therapists will perform initial evaluation of pt's status upon admission and devise an individualized program for Caregiver Training Weakness - to improve, our occupation therapists will perform initial evaluation of pt's status upon admission and devise an individualized program for Aquatic Therapy, Balance, Endurance, UE ROM, and UE strengthening - Other See attached MAR (Medication Administration Record) - Diet Type Continue Regular - Diet - Liquid Texture Continue Regular - Tube Feed Continue N/A - Incontinence Bowel Incontinence - Bleeding Risk Eliquis - DVT Risk due to restricted mobility, age, and obesity - Skin Breakdown Risk due to restricted mobility and age - Cardiac Precaution Monitor blood pressure, heart rate, lower extremity edema, notify MD for shortness of breath or ches t pain Monitor patient for excessive elevation of heart rate and blood pressure during therapy - Fall Precaution Bed alarm TABS alarm Wheel chair alarm - Diet - Solid Texture Continue Regular - Shower allowing shower FUNCTIONAL STATUS: UPDATED AT WEEKLY TEAM CONFERENCE - Bladder Same accident frequency: 7-Ind - No accidents in the past 7 days - Bowel Same accident frequency: 7-Ind - No accidents in the past 7 days - Walking Same score based on distance walked: 0(N/A) Same score based on distance walked: 1(<=50ft) - Wheelchair Same score based on distance traveled: 0(N/A) FUNCTIONAL STATUS: - Self-Care A. Eating Ind B. Grooming Alberto C. Bathing modA D. Dressing - Upper Mickey E. Dressing - Lower modA F. Toileting sup - Sphincter Control G. Bladder control Alberto H. Bowel control Alberto - Transfers Control I. Bed/Chair/Wheelchair Mickey J. Toilet Mickey K. Tub/Shower modA - Locomotion L. Walk/Wheelchair (B) Mickey M. Stairs maxA - Communication N. Comprehension (B) Alberto O. Expression (B) Alberto - Social Cognition P. Social Interaction Ind Q. Problem Solving Ind R. Memory Alberto - Endurance Good - Balance Good - Safety Awareness Good QI SCORES: - Self-Care A. Eating 06-Independent B. Oral hygiene 06-Independent C. Toileting hygiene 01-Dependent E. Shower/bathe self 03-Partial/moderate assistance F. Upper body dressing 06-Independent G. Lower body dressing 03-Partial/moderate assistance H. Putting on/taking off footwear 03-Partial/moderate assistance - Mobility A. Roll left and right 04-Supervision or touching assistance B. Sit to lying 04-Supervision or touching assistance C. Lying to sitting on side of bed 03-Partial/moderate assistance D. Sit to stand 04-Supervision or touching assistance E. Chair/[id number] transfer 04-Supervision or touching assistance F. Toilet transfer 04-Supervision or touching assistance G. Car transfer 04-Supervision or touching assistance I. Walk 10 feet 88-Not attempted due to medical condition or safety concerns J. Walk 50 feet with two turns 88-Not attempted due to medical condition or safety concerns K. Walk 150 feet 88-Not attempted due to medical condition or safety concerns L. Walking 10 feet on uneven surfaces 88-Not attempted due to medical condition or safety concerns M. 1 step (curb) 88-Not attempted due to medical condition or safety concerns N. 4 steps 88-Not attempted due to medical condition or safety concerns O. 12 steps 88-Not attempted due to medical condition or safety concerns P. Picking up object 88-Not attempted due to medical condition or safety concerns R. Wheel 50 feet with two turns 09-Not applicable S. Wheel 150 feet 09-Not applicable - Bladder and Bowel Bladder continence 0-Always continent Bowel continence 2-Frequently incontinent - Endurance Fair - Balance Fair - Safety Awareness Fair CURRENT FUNC. DEFICITS: Mobility, Endurance, Balance, Safety Awareness, and Self-Care SIGNATURE PANEL: ([facility])
[2021-08-07] MEDS: ATORVASTATIN 20 MG TAB PO SCH (19:46)
[2021-08-07] MEDS: TERAZOSIN HCL 1 MG CAP PO SCH (19:47)
[2021-08-07] MEDS: TAMSULOSIN 0.4 MG SR CAP PO SCH (19:47)
[2021-08-07] MEDS: ACETAMINOPHEN 500 MG TAB PO PRN (19:47)
[2021-08-07] MEDS: MELATONIN 3 MG TABLET PO PRN (19:47)
[2021-08-08] MEDS: POTASSIUM CL SA 10 MEQ TAB PO SCH ×2 (07:33→16:48)
[2021-08-08] MEDS: lisinopriL 20 MG TAB PO SCH (07:34)
[2021-08-08] MEDS: APIXABAN 5 MG TABLET PO SCH (07:34)
[2021-08-08] MEDS: FUROSEMIDE 40 MG TABLET PO SCH ×2 (07:35→16:48)
[2021-08-08] MEDS: allopurinoL 300 MG TAB PO SCH (07:35)
[2021-08-08] MEDS: CRANBERRY FRUIT EXTRACT 400 MG CAP PO SCH ×2 (07:35→20:20)
[2021-08-08 13:31] LABS: Absolute Lymphocytes (CBC) 0.8 K/uL (0.7-4.9); Hematocrit 34.3 % (39.6-49.0); Lymphocytes % 27.5 % (15.3-44.8); MPV 7.8 fL (7.6-11.3); RBC Red Blood Cell Count 3.89 M/uL (4.33-5.43)
[2021-08-08 13:36] LABS: Protime INR 2.13
[2021-08-08] MEDS: SIMETHICONE 80 MG TAB PO PRN ×2 (13:46→20:20)
[2021-08-08] MEDS ORDERED: POTASSIUM CL SA 10 MEQ TAB PO ONE (13:55)
--- NOTE | 2021-08-08 17:40 | R.PN ---
PROGRESS NOTES ENCOUNTER DATE AND TIME: 08/08/2021 17:34 (CDT) NAME Michele Covarrubias DATE OF : 1945 DATE OF ADMISSION: 08/01/2021 22:00 (CDT) Acute Diastolic CHFCHIEF COMPLAINT: Acute diastolic CHF, fatigue SUBJECTIVE: Pt denied any Shortness of Breath. Pt denied any depression. WBC 3.4, Hgb 11.3, Plt 189, K+ 3.3, prealbumin 15.6. UA suggests a UTI and cultures grew citrobacter Freundii Complex. Not symptomatic. On Cranberry fruit extract. Ambulated 1750' with standby assistance using a rolling walker. VITAL SIGNS Temperature: 97.4 F SBP/DBP: 168/78 Pulse: 70 Resp: 16 MEDICATION ALLERGIES: No Known Drug Allergies (NKDA) ENVIRONMENTAL ALLERGIES: - Substance Allergies None Known - Other Allergies None Known NURSING: - Shower allowing shower PRECAUTIONS: - Fall Precaution Bed alarm TABS alarm Wheel chair alarm - Incontinence Bowel Incontinence - DVT Risk due to restricted mobility, age, and obesity - Bleeding Risk Eliquis - Skin Breakdown Risk due to restricted mobility and age - Cardiac Precaution Monitor blood pressure, heart rate, lower extremity edema, notify MD for shortness of breath or chest pain Monitor patient for excessive elevation of heart rate and blood pressure during therapy ACTIVITIES OOB only with supervision THERAPIES: - Dietary and Nutrition Adequate Nutrition. Nutritional Education. Nutritional Supplements. - Occupational Therapy Cognitive Retraining. Patient needs Occupational Therapy for a daily minimum of 1.5 hours at least 5 out of 7 days, to improve Activities of Daily Living, including: Eating, Grooming, Bathing, Dressing, Toileting, Toilet Transfers, Community Reintegration, Higher functional activities, Adaptive Equipme nt, Splinting, Household Tasks, and Other activities as determined. Visual Perceptual Training. - Speech Therapy Cognitive Training. Expressive Language Skills. Memory Strategies. Patient needs Speech Therapy for a daily minimum of 1.5 hours at least 5 out of 7 days, to improve: Swallowing, Cognition, Language Ski lls, and Compensatory Strategies. Receptive Language Skills. Speech Intelligibility Training. - Physical Therapy Patient needs Physical Therapy for a daily minimum of 1.5 hours at least 5 out of 7 days, to improve: Mobility, Strengthening, Transfers, Stretching, ROM, Endurance, Ability to manage stairs, Gait, and Balance. PHYSICAL EXAM - Gen Alert and awake Lying in bed No apparent distress Oriented to: person, time, and place - Skin No skin breakdown. No abnormalities - Eyes No abnormalities - ENMT No abnormalities - Neck No abnormalities - CVS RRR - Chest No abnormalities - Resp Clear to auscultation - Abd Soft - GI nondistended Deferred - No abnormalities - Ext Mild bilateral lower extremity edema. - MSK 4+/5 weakness in both lower extremities. - Neuro No focal deficits - Psych No abnormalities ASSESSMENT: Pt. is a 76 yo white male.On 07/27/2021 he was admitted to [facility] with diagnosis Acute Di astolic CHF.His impairment category is Cardiac 09 - Cardiac Disorders ().Pre-morbidly, Pt. was ind ependent/mod-I in Locomotion and Self-Care; and he had good Safety Awareness, Balance, Transfers Cont rol, Sphincter Control, and Endurance.Currently, he has deficits of Locomotion, Safety Awareness, Tra nsfers Control, Sphincter Control, Endurance, and Self-Care.Pt. is now referred to [facility] for acute in-patient rehabilitation in order to maximize patient's functional indepen dence in activities of daily living, strength, ROM, and mobility.- Rehab Goal Patient has realistic goal of being discharged at assistance level 7-Ind to reside at Home with Pt s elf. MDM/PLAN: - Physical Therapy Gait dysfunction - to improve, our physical therapists will perform initial evaluation of pt's statu s upon admission and devise an individualized program for Gait Training, and Wheel Chair mobility Inability to transfer - to improve, our physical therapists will perform initial evaluation of pt's status upon admission and devise an individualized program for Bed mobility Need for home safety evaluation - to improve, our physical therapists will perform initial evaluatio n of pt's status upon admission and devise an individualized program for Home Evaluation Need in caregiver upon discharge - to improve, our physical therapists will perform initial evaluati on of pt's status upon admission and devise an individualized program for Caregiver Training Edema - to improve, our physical therapists will perform initial evaluation of pt's status upon admi ssion and devise an individualized program for Elevation Training, and Lymphedema Therapy New precaution - to improve, our physical therapists will perform initial evaluation of pt's status upon admission and devise an individualized program for Patient precaution education Poor endurance - to improve, our physical therapists will perform initial evaluation of pt's status upon admission and devise an individualized program for Endurance Training Weakness - to improve, our physical therapists will perform initial evaluation of pt's status upon a dmission and devise an individualized program for Aquatic Therapy, Neuromuscular Reeducation, and Str engthening Achieving independence - to improve, our physical therapists will perform initial evaluation of pt's status upon admission and devise an individualized program for Community Reintegration Activities - Occupational Therapy ADL deficits - to improve, our occupation therapists will perform initial evaluation of pt's status upon admission and devise an individualized program for Bathing, Bed mobility, Community Reintegratio n, Cooking, Dressing, Eating, Fine Motor Skills, Grooming, Homemaking, Kitchen Mobility, Laundry, Pat ient Education, Safety Awareness, Splinting - Positioning, Transfers(Toilet, Tub, Shower), and Wheel Chair Management Need for medicare specialist - to improve, our occupation therapists will perform initial evaluation of pt's status upon admission and devise an individualized program for Caregiver Training Weakness - to improve, our occupation therapists will perform initial evaluation of pt's status upon admission and devise an individualized program for Aquatic Therapy, Balance, Endurance, UE ROM, and UE strengthening - Other See attached MAR (Medication Administration Record) - Diet Type Continue Regular - Diet - Liquid Texture Continue Regular - Tube Feed Continue N/A - Incontinence Bowel Incontinence - Bleeding Risk Eliquis - DVT Risk due to restricted mobility, age, and obesity - Skin Breakdown Risk due to restricted mobility and age - Cardiac Precaution Monitor blood pressure, heart rate, lower extremity edema, notify MD for shortness of breath or ches t pain Monitor patient for excessive elevation of heart rate and blood pressure during therapy - Fall Precaution Bed alarm TABS alarm Wheel chair alarm - Diet - Solid Texture Continue Regular - Shower allowing shower FUNCTIONAL STATUS: UPDATED AT WEEKLY TEAM CONFERENCE - Bladder Same accident frequency: 7-Ind - No accidents in the past 7 days - Bowel Same accident frequency: 7-Ind - No accidents in the past 7 days - Walking Same score based on distance walked: 0(N/A) Same score based on distance walked: 1(<=50ft) - Wheelchair Same score based on distance traveled: 0(N/A) FUNCTIONAL STATUS: - Self-Care A. Eating Ind B. Grooming Alberto C. Bathing modA D. Dressing - Upper Mickey E. Dressing - Lower modA F. Toileting sup - Sphincter Control G. Bladder control Alberto H. Bowel control Alberto - Transfers Control I. Bed/Chair/Wheelchair Mickey J. Toilet Mickey K. Tub/Shower modA - Locomotion L. Walk/Wheelchair (B) Mickey M. Stairs maxA - Communication N. Comprehension (B) Alberto O. Expression (B) Alberto - Social Cognition P. Social Interaction Ind Q. Problem Solving Ind R. Memory Alberto - Endurance Good - Balance Good - Safety Awareness Good QI SCORES: - Self-Care A. Eating 06-Independent B. Oral hygiene 06-Independent C. Toileting hygiene 01-Dependent E. Shower/bathe self 03-Partial/moderate assistance F. Upper body dressing 06-Independent G. Lower body dressing 03-Partial/moderate assistance H. Putting on/taking off footwear 03-Partial/moderate assistance - Mobility A. Roll left and right 04-Supervision or touching assistance B. Sit to lying 04-Supervision or touching assistance C. Lying to sitting on side of bed 03-Partial/moderate assistance D. Sit to stand 04-Supervision or touching assistance E. Chair/[id number] transfer 04-Supervision or touching assistance F. Toilet transfer 04-Supervision or touching assistance G. Car transfer 04-Supervision or touching assistance I. Walk 10 feet 88-Not attempted due to medical condition or safety concerns J. Walk 50 feet with two turns 88-Not attempted due to medical condition or safety concerns K. Walk 150 feet 88-Not attempted due to medical condition or safety concerns L. Walking 10 feet on uneven surfaces 88-Not attempted due to medical condition or safety concerns M. 1 step (curb) 88-Not attempted due to medical condition or safety concerns N. 4 steps 88-Not attempted due to medical condition or safety concerns O. 12 steps 88-Not attempted due to medical condition or safety concerns P. Picking up object 88-Not attempted due to medical condition or safety concerns R. Wheel 50 feet with two turns 09-Not applicable S. Wheel 150 feet 09-Not applicable - Bladder and Bowel Bladder continence 0-Always continent Bowel continence 2-Frequently incontinent - Endurance Fair - Balance Fair - Safety Awareness Fair CURRENT FUNC. DEFICITS: Mobility, Endurance, Balance, Safety Awareness, and Self-Care SIGNATURE PANEL: (CDT)
[2021-08-08] MEDS: TAMSULOSIN 0.4 MG SR CAP PO SCH (20:19)
[2021-08-08] MEDS: ACETAMINOPHEN 500 MG TAB PO PRN (20:19)
[2021-08-08] MEDS: ATORVASTATIN 20 MG TAB PO SCH (20:20)
[2021-08-08] MEDS: TERAZOSIN HCL 1 MG CAP PO SCH (20:20)
[2021-08-08] MEDS: APIXABAN 2.5 MG TABLET PO SCH (20:20)
[2021-08-09 06:44] LABS: Hematocrit 31.1 % (39.6-49.0); MPV 7.7 fL (7.6-11.3); RBC Red Blood Cell Count 3.59 M/uL (4.33-5.43)
[2021-08-09 06:48] LABS: Albumin 2.9 g/dL (3.4-5.0); Potassium 3.5 mmol/L (3.5-5.1); Prealbumin 15.9 mg/dL (20-40)
[2021-08-09] MEDS: APIXABAN 2.5 MG TABLET PO SCH (07:06)
[2021-08-09] MEDS: lisinopriL 20 MG TAB PO SCH (07:06)
[2021-08-09] MEDS ORDERED: APIXABAN 5 MG TABLET PO SCH (08:00)
[2021-08-09] MEDS: POTASSIUM CL SA 10 MEQ TAB PO SCH (08:08)
[2021-08-09] MEDS: CRANBERRY FRUIT EXTRACT 400 MG CAP PO SCH ×2 (08:08→20:01)
[2021-08-09] MEDS: allopurinoL 300 MG TAB PO SCH (08:08)
[2021-08-09] MEDS: FUROSEMIDE 40 MG TABLET PO SCH (08:08)
--- NOTE | 2021-08-09 13:13 | RAD REPORT ---
EXAM DESCRIPTION: Brittany Single View08/09/2021 1:07 pm CLINICAL HISTORY: Shortness of breath COMPARISON: none FINDINGS: The lungs appear clear of acute infiltrate. The heart is moderately enlarged IMPRESSION: No acute abnormalities displayed
[2021-08-09] MEDS ORDERED: POTASSIUM CL SA 10 MEQ TAB PO ONE (13:51)
--- NOTE | 2021-08-09 18:00 | R.PN ---
PROGRESS NOTES ENCOUNTER DATE AND TIME: 08/09/2021 17:55 (CDT) NAME Michele Covarrubias DATE OF : 1945 DATE OF ADMISSION: 08/01/2021 22:00 (CDT) Acute Diastolic CHFCHIEF COMPLAINT: Acute diastolic CHF, fatigue SUBJECTIVE: Pt denied any Shortness of Breath. Pt denied any depression. WBC 3.4, Hgb 10.6, Plt 189, K+ 3.5, prealbumin 15.9. UA suggests a UTI and cultures grew citrobacter Freundii Complex. Not symptomatic. On Cranberry fruit extract. Up and down 4 steps with contact guard assistance. Chest x-ray shows clear lungs. VITAL SIGNS Temperature: 97.6 F SBP/DBP: 188/86 Pulse: 66 Resp: 15 MEDICATION ALLERGIES: No Known Drug Allergies (NKDA) ENVIRONMENTAL ALLERGIES: - Substance Allergies None Known - Other Allergies None Known NURSING: - Shower allowing shower PRECAUTIONS: - Fall Precaution Bed alarm TABS alarm Wheel chair alarm - Incontinence Bowel Incontinence - DVT Risk due to restricted mobility, age, and obesity - Bleeding Risk Eliquis - Skin Breakdown Risk due to restricted mobility and age - Cardiac Precaution Monitor blood pressure, heart rate, lower extremity edema, notify MD for shortness of breath or chest pain Monitor patient for excessive elevation of heart rate and blood pressure during therapy ACTIVITIES OOB only with supervision THERAPIES: - Dietary and Nutrition Adequate Nutrition. Nutritional Education. Nutritional Supplements. - Occupational Therapy Cognitive Retraining. Patient needs Occupational Therapy for a daily minimum of 1.5 hours at least 5 out of 7 days, to improve Activities of Daily Living, including: Eating, Grooming, Bathing, Dressing, Toileting, Toilet Transfers, Community Reintegration, Higher functional activities, Adaptive Equipme nt, Splinting, Household Tasks, and Other activities as determined. Visual Perceptual Training. - Speech Therapy Cognitive Training. Expressive Language Skills. Memory Strategies. Patient needs Speech Therapy for a daily minimum of 1.5 hours at least 5 out of 7 days, to improve: Swallowing, Cognition, Language Ski lls, and Compensatory Strategies. Receptive Language Skills. Speech Intelligibility Training. - Physical Therapy Patient needs Physical Therapy for a daily minimum of 1.5 hours at least 5 out of 7 days, to improve: Mobility, Strengthening, Transfers, Stretching, ROM, Endurance, Ability to manage stairs, Gait, and Balance. PHYSICAL EXAM - Gen Alert and awake Lying in bed No apparent distress Oriented to: person, time, and place - Skin No skin breakdown. No abnormalities - Eyes No abnormalities - ENMT No abnormalities - Neck No abnormalities - CVS RRR - Chest No abnormalities - Resp Clear to auscultation - Abd Soft - GI nondistended Deferred - No abnormalities - Ext Mild bilateral lower extremity edema. - MSK 4+/5 weakness in both lower extremities. - Neuro No focal deficits - Psych No abnormalities ASSESSMENT: Pt. is a 76 yo white male.On 07/27/[address] [facility] with diagnosis Acute Di astolic CHF.His impairment category is Cardiac 09 - Cardiac Disorders ().Pre-morbidly, Pt. was ind ependent/mod-I in Locomotion and Self-Care; and he had good Safety Awareness, Balance, Transfers Cont rol, Sphincter Control, and Endurance.Currently, he has deficits of Locomotion, Safety Awareness, Tra nsfers Control, Sphincter Control, Endurance, and Self-Care.Pt. is now referred to [facility] for acute in-patient rehabilitation in order to maximize patient's functional indepen dence in activities of daily living, strength, ROM, and mobility.- Rehab Goal Patient has realistic goal of being discharged at assistance level 7-Ind to reside at Home with Pt s elf. MDM/PLAN: - Physical Therapy Gait dysfunction - to improve, our physical therapists will perform initial evaluation of pt's statu s upon admission and devise an individualized program for Gait Training, and Wheel Chair mobility Inability to transfer - to improve, our physical therapists will perform initial evaluation of pt's status upon admission and devise an individualized program for Bed mobility Need for home safety evaluation - to improve, our physical therapists will perform initial evaluatio n of pt's status upon admission and devise an individualized program for Home Evaluation Need in caregiver upon discharge - to improve, our physical therapists will perform initial evaluati on of pt's status upon admission and devise an individualized program for Caregiver Training Edema - to improve, our physical therapists will perform initial evaluation of pt's status upon admi ssion and devise an individualized program for Elevation Training, and Lymphedema Therapy New precaution - to improve, our physical therapists will perform initial evaluation of pt's status upon admission and devise an individualized program for Patient precaution education Poor endurance - to improve, our physical therapists will perform initial evaluation of pt's status upon admission and devise an individualized program for Endurance Training Weakness - to improve, our physical therapists will perform initial evaluation of pt's status upon a dmission and devise an individualized program for Aquatic Therapy, Neuromuscular Reeducation, and Str engthening Achieving independence - to improve, our physical therapists will perform initial evaluation of pt's status upon admission and devise an individualized program for Community Reintegration Activities - Occupational Therapy ADL deficits - to improve, our occupation therapists will perform initial evaluation of pt's status upon admission and devise an individualized program for Bathing, Bed mobility, Community Reintegratio n, Cooking, Dressing, Eating, Fine Motor Skills, Grooming, Homemaking, Kitchen Mobility, Laundry, Pat ient Education, Safety Awareness, Splinting - Positioning, Transfers(Toilet, Tub, Shower), and Wheel Chair Management Need for healthcare facility administrator - to improve, our occupation therapists will perform initial evaluation of pt's status upon admission and devise an individualized program for Caregiver Training Weakness - to improve, our occupation therapists will perform initial evaluation of pt's status upon admission and devise an individualized program for Aquatic Therapy, Balance, Endurance, UE ROM, and UE strengthening - Other See attached MAR (Medication Administration Record) - Diet Type Continue Regular - Diet - Liquid Texture Continue Regular - Tube Feed Continue N/A - Incontinence Bowel Incontinence - Bleeding Risk Eliquis - DVT Risk due to restricted mobility, age, and obesity - Skin Breakdown Risk due to restricted mobility and age - Cardiac Precaution Monitor blood pressure, heart rate, lower extremity edema, notify MD for shortness of breath or ches t pain Monitor patient for excessive elevation of heart rate and blood pressure during therapy - Fall Precaution Bed alarm TABS alarm Wheel chair alarm - Diet - Solid Texture Continue Regular - Shower allowing shower FUNCTIONAL STATUS: UPDATED AT WEEKLY TEAM CONFERENCE - Bladder Same accident frequency: 7-Ind - No accidents in the past 7 days - Bowel Same accident frequency: 7-Ind - No accidents in the past 7 days - Walking Same score based on distance walked: 0(N/A) Same score based on distance walked: 1(<=50ft) - Wheelchair Same score based on distance traveled: 0(N/A) FUNCTIONAL STATUS: - Self-Care A. Eating Ind B. Grooming Alberto C. Bathing modA D. Dressing - Upper Mickey E. Dressing - Lower modA F. Toileting sup - Sphincter Control G. Bladder control Alberto H. Bowel control Alberto - Transfers Control I. Bed/Chair/Wheelchair Mickey J. Toilet Mickey K. Tub/Shower modA - Locomotion L. Walk/Wheelchair (B) Mikcey M. Stairs maxA - Communication N. Comprehension (B) Alberto O. Expression (B) Alberto - Social Cognition P. Social Interaction Ind Q. Problem Solving Ind R. Memory Alberto - Endurance Good - Balance Good - Safety Awareness Good QI SCORES: - Self-Care A. Eating 06-Independent B. Oral hygiene 06-Independent C. Toileting hygiene 01-Dependent E. Shower/bathe self 03-Partial/moderate assistance F. Upper body dressing 06-Independent G. Lower body dressing 03-Partial/moderate assistance H. Putting on/taking off footwear 03-Partial/moderate assistance - Mobility A. Roll left and right 04-Supervision or touching assistance B. Sit to lying 04-Supervision or touching assistance C. Lying to sitting on side of bed 03-Partial/moderate assistance D. Sit to stand 04-Supervision or touching assistance E. Chair/[id number] transfer 04-Supervision or touching assistance F. Toilet transfer 04-Supervision or touching assistance G. Car transfer 04-Supervision or touching assistance I. Walk 10 feet 88-Not attempted due to medical condition or safety concerns J. Walk 50 feet with two turns 88-Not attempted due to medical condition or safety concerns K. Walk 150 feet 88-Not attempted due to medical condition or safety concerns L. Walking 10 feet on uneven surfaces 88-Not attempted due to medical condition or safety concerns M. 1 step (curb) 88-Not attempted due to medical condition or safety concerns N. 4 steps 88-Not attempted due to medical condition or safety concerns O. 12 steps 88-Not attempted due to medical condition or safety concerns P. Picking up object 88-Not attempted due to medical condition or safety concerns R. Wheel 50 feet with two turns 09-Not applicable S. Wheel 150 feet 09-Not applicable - Bladder and Bowel Bladder continence 0-Always continent Bowel continence 2-Frequently incontinent - Endurance Fair - Balance Fair - Safety Awareness Fair CURRENT FUNC. DEFICITS: Mobility, Endurance, Balance, Safety Awareness, and Self-Care SIGNATURE PANEL: (CDT)
[2021-08-09] MEDS: ATORVASTATIN 20 MG TAB PO SCH (20:00)
[2021-08-09] MEDS: TERAZOSIN HCL 1 MG CAP PO SCH (20:01)
[2021-08-09] MEDS: TAMSULOSIN 0.4 MG SR CAP PO SCH (20:01)
[2021-08-09] MEDS: carvediloL 6.25 MG TAB PO SCH (20:01)
[2021-08-09] MEDS: APIXABAN 5 MG TABLET PO SCH (20:02)
[2021-08-09] MEDS: DOCUSATE NA/SENNA CONC 1 TAB PO PRN (20:02)
[2021-08-09] MEDS: MELATONIN 3 MG TABLET PO PRN (20:03)
[2021-08-10] MEDS: CRANBERRY FRUIT EXTRACT 400 MG CAP PO SCH ×2 (08:31→19:33)
[2021-08-10] MEDS: carvediloL 6.25 MG TAB PO SCH (08:31)
[2021-08-10] MEDS: POTASSIUM CL SA 10 MEQ TAB PO SCH (08:31)
[2021-08-10] MEDS: allopurinoL 300 MG TAB PO SCH (08:31)
[2021-08-10] MEDS: lisinopriL 20 MG TAB PO SCH (08:32)
[2021-08-10] MEDS: FUROSEMIDE 40 MG TABLET PO SCH (08:32)
[2021-08-10] MEDS: APIXABAN 5 MG TABLET PO SCH ×2 (08:33→19:33)
--- NOTE | 2021-08-10 10:17 | P.RH.PN ---
Estimated Length of Stay: 11 Expected Discharge Date: 08/12/21 Discharge Disposition Plan: Home Family Support: Yes Fdc Goal: Mobility, Transfers, Self Care Vital Signs: Last Vital Signs Temp 97.2 F 08/10/21 09:06 Pulse 72 08/10/21 09:06 Resp 17 08/10/21 09:06 BP 191/85 H 08/10/21 09:06 Pulse Ox 97 08/10/21 09:06 Laboratory: Laboratory Last Values WBC 3.4 K/uL (4.3-10.9) L 08/09/21 05:33 RBC 3.59 M/uL (4.33-5.43) L 08/09/21 05:33 Hgb 10.6 g/dL (13.6-17.9) L 08/09/21 05:33 Hct 31.1 % (39.6-49.0) L 08/09/21 05:33 MCV 86.8 fL (80-100) 08/09/21 05:33 MCH 29.7 pg (27.0-35.0) 08/09/21 05:33 MCHC 34.2 g/dL (32.0-36.0) 08/09/21 05:33 RDW 16.7 % (12.1-15.2) H 08/09/21 05:33 Plt Count 193 K/uL (152-406) 08/09/21 05:33 MPV 7.7 fL (7.6-11.3) 08/09/21 05:33 Neutrophils % 59.5 % (41.7-73.7) 08/08/21 13:03 Lymphocytes % 27.5 % (15.3-44.8) 08/08/21 13:03 Monocytes % 9.3 % (3.3-12.3) 08/08/21 13:03 Eosinophils % 3.0 % (0-4.4) 08/08/21 13:03 Basophils % 0.7 % (0-1.3) 08/08/21 13:03 Absolute Neutrophils 1.8 K/uL (1.8-8.0) 08/08/21 13:03 Absolute Lymphocytes 0.8 K/uL (0.7-4.9) 08/08/21 13:03 Absolute Monocytes 0.3 K/uL (0.1-1.3) 08/08/21 13:03 Absolute Eosinophils 0.1 K/uL (0-0.5) 08/08/21 13:03 Absolute Basophils 0.0 K/uL (0-0.5) 08/08/21 13:03 PT 23.8 SECONDS (9.5-12.5) H 08/08/21 13:15 INR 2.13 08/08/21 13:15 APTT 38.5 SECONDS (24.3-36.9) H 08/08/21 13:15 Sodium 138 mmol/L (136-145) 08/09/21 05:33 Potassium 3.5 mmol/L (3.5-5.1) 08/09/21 05:33 Chloride 104 mmol/L (98-107) 08/09/21 05:33 Carbon Dioxide 29 mmol/L (21-32) 08/09/21 05:33 Anion Gap 8.5 mEq/L (5.0-15.0) 08/09/21 05:33 BUN 18 mg/dL (7-18) 08/09/21 05:33 Creatinine 1.00 mg/dL (0.55-1.3) 08/09/21 05:33 Est GFR (CKD-EPI) 77 ml/min (=/>90) L 08/09/21 05:33 Glucose 88 mg/dL (74-106) 08/09/21 05:33 Calcium 8.6 mg/dL (8.5-10.1) 08/09/21 05:33 Magnesium 2.0 mg/dL (1.8-2.4) 08/09/21 05:33 Albumin 2.9 g/dL (3.4-5.0) L 08/09/21 05:33 Prealbumin 15.9 mg/dL (20-40) L 08/09/21 05:33 Urine Color Yellow (Yellow) 08/02/21 05:38 Urine Appearance Clear (Clear) 08/02/21 05:38 Urine pH 7.5 (5.0-7.0) H 08/02/21 05:38 Ur Specific [place] 1.020 (1.005-1.030) 08/02/21 05:38 Glucose (UA)(Auto) Negative (Negative) 08/02/21 05:38 Urine Ketones Negative (Negative) 08/02/21 05:38 Urine Blood 2+ (Negative) H 08/02/21 05:38 Urine Nitrite Negative (Negative) 08/02/21 05:38 Urine Bilirubin Negative (Negative) 08/02/21 05:38 Urine Urobilinogen 2.0 mg/dL (0.2-1.0) H 08/02/21 05:38 Ur Leukocyte Esterase 2+ (Negative) H 08/02/21 05:38 Urine RBC 10-20 /HPF (NONE SEEN) H 08/02/21 05:38 Urine WBC 10-20 /HPF (<5) H 08/02/21 05:38 Ur Squamous Epith Cells [employer] 08/02/21 05:38 Urine Bacteria >50 /HPF (NONE SEEN) H 08/02/21 05:38 Urine Culture Reflexed Not needed 08/02/21 05:38 Urine Total Protein 2+ (Negative) H 08/02/21 05:38 SARS-CoV-2 Rap RNA(RT-PCR) Negative (NEGATIVE) 08/08/21 04:40 Weight: 193 lb 4.8 oz Wound Present: Yes Closed Surgical Incision Present: No Negative Pressure Wound Therapy Present: No Physician Update: BP 191/85 HR 72. Independent with bed mobility, 1000' with SBA, 20 steps x 2 with BHR at CGA. [place] grooming upper and lower body dressing. Set up for bathing. K was low and is now replaced. Summary: Patient's care plan and watermaster goals have been reviewed and revised as necessary. Please see the Rehabilitation Signature page for all necessary signatures.
[2021-08-10] MEDS: carvediloL 12.5 MG TAB PO SCH (19:32)
[2021-08-10] MEDS: TAMSULOSIN 0.4 MG SR CAP PO SCH (20:11)
[2021-08-10] MEDS: ATORVASTATIN 20 MG TAB PO SCH (20:12)
[2021-08-10] MEDS: TERAZOSIN HCL 1 MG CAP PO SCH (20:13)
[2021-08-10] MEDS: cloNIDine HCL 0.1 MG TAB PO PRN (20:48)
[2021-08-11] MEDS: cloNIDine HCL 0.1 MG TAB PO PRN (05:25)
[2021-08-11 05:27] LABS: Urine Bilirubin Negative (Negative); Urine Blood 2+ (Negative); Urine Color Yellow (Yellow); Urine Glucose Negative (Negative); Urine Protein 2+ (Negative); Urine Specific Gravity 1.015 (1.005-1.030); Urine Urobilinogen 0.2 mg/dL (0.2-1.0)
[2021-08-11 05:38] LABS: Urine Appearance SL CLOUDY (Clear); Urine Microscopic Reflex ORDER UMIC
[2021-08-11 06:05] LABS: Urine Bacteria 20-50 /HPF (NONE SEEN); Urine Yeast MANY (NONE SEEN)
[2021-08-11] MEDS: APIXABAN 5 MG TABLET PO SCH ×3 (08:00→19:51)
[2021-08-11] MEDS: carvediloL 12.5 MG TAB PO SCH ×2 (09:38→19:51)
[2021-08-11] MEDS: allopurinoL 300 MG TAB PO SCH (09:39)
[2021-08-11] MEDS: POTASSIUM CL SA 10 MEQ TAB PO SCH (09:39)
[2021-08-11] MEDS: FUROSEMIDE 40 MG TABLET PO SCH (09:39)
[2021-08-11] MEDS: lisinopriL 20 MG TAB PO SCH (09:39)
[2021-08-11] MEDS: CRANBERRY FRUIT EXTRACT 400 MG CAP PO SCH ×2 (09:39→19:51)
--- NOTE | 2021-08-11 16:53 | R.PN ---
PROGRESS NOTES ENCOUNTER DATE AND TIME: 08/11/2021 16:49 (CDT) NAME Michele Covarrubias DATE OF : 1945 DATE OF ADMISSION: 08/01/2021 22:00 (CDT) Acute Diastolic CHFCHIEF COMPLAINT: Acute diastolic CHF, fatigue SUBJECTIVE: Pt denied any Shortness of Breath. Pt denied any depression. WBC 3.4, Hgb 10.6, Plt 189, K+ 3.5, prealbumin 15.9. UA suggests a UTI and cultures grew citrobacter Freundii Complex. Not symptomatic. On Cranberry fruit extract. Ambulated 1500' with SBA using a rolling walker. Chest x-ray shows clear lungs. Increased Coreg to 25 mg bid for very elevated blood pressures. VITAL SIGNS Temperature: 97.6 F SBP/DBP: 188/86 Pulse: 66 Resp: 15 MEDICATION ALLERGIES: No Known Drug Allergies (NKDA) ENVIRONMENTAL ALLERGIES: - Substance Allergies None Known - Other Allergies None Known NURSING: - Shower allowing shower PRECAUTIONS: - Fall Precaution Bed alarm TABS alarm Wheel chair alarm - Incontinence Bowel Incontinence - DVT Risk due to restricted mobility, age, and obesity - Bleeding Risk Eliquis - Skin Breakdown Risk due to restricted mobility and age - Cardiac Precaution Monitor blood pressure, heart rate, lower extremity edema, notify MD for shortness of breath or chest pain Monitor patient for excessive elevation of heart rate and blood pressure during therapy ACTIVITIES OOB only with supervision THERAPIES: - Dietary and Nutrition Adequate Nutrition. Nutritional Education. Nutritional Supplements. - Occupational Therapy Cognitive Retraining. Patient needs Occupational Therapy for a daily minimum of 1.5 hours at least 5 out of 7 days, to improve Activities of Daily Living, including: Eating, Grooming, Bathing, Dressing, Toileting, Toilet Transfers, Community Reintegration, Higher functional activities, Adaptive Equipme nt, Splinting, Household Tasks, and Other activities as determined. Visual Perceptual Training. - Speech Therapy Cognitive Training. Expressive Language Skills. Memory Strategies. Patient needs Speech Therapy for a daily minimum of 1.5 hours at least 5 out of 7 days, to improve: Swallowing, Cognition, Language Ski lls, and Compensatory Strategies. Receptive Language Skills. Speech Intelligibility Training. - Physical Therapy Patient needs Physical Therapy for a daily minimum of 1.5 hours at least 5 out of 7 days, to improve: Mobility, Strengthening, Transfers, Stretching, ROM, Endurance, Ability to manage stairs, Gait, and Balance. PHYSICAL EXAM - Gen Alert and awake Lying in bed No apparent distress Oriented to: person, time, and place - Skin No skin breakdown. No abnormalities - Eyes No abnormalities - ENMT No abnormalities - Neck No abnormalities - CVS RRR - Chest No abnormalities - Resp Clear to auscultation - Abd Soft - GI nondistended Deferred - No abnormalities - Ext Mild bilateral lower extremity edema. - MSK 4+/5 weakness in both lower extremities. - Neuro No focal deficits - Psych No abnormalities ASSESSMENT: Pt. is a 76 yo white male.On 07/27/2021 he was admitted to [facility] with diagnosis Acute Di astolic CHF.His impairment category is Cardiac 09 - Cardiac Disorders ().Pre-morbidly, Pt. was ind ependent/mod-I in Locomotion and Self-Care; and he had good Safety Awareness, Balance, Transfers Cont rol, Sphincter Control, and Endurance.Currently, he has deficits of Locomotion, Safety Awareness, Tra nsfers Control, Sphincter Control, Endurance, and Self-Care.Pt. is now referred to [facility] for acute in-patient rehabilitation in order to maximize patient's functional indepen dence in activities of daily living, strength, ROM, and mobility.- Rehab Goal Patient has realistic goal of being discharged at assistance level 7-Ind to reside at Home with Pt s elf. MDM/PLAN: - Physical Therapy Gait dysfunction - to improve, our physical therapists will perform initial evaluation of pt's statu s upon admission and devise an individualized program for Gait Training, and Wheel Chair mobility Inability to transfer - to improve, our physical therapists will perform initial evaluation of pt's status upon admission and devise an individualized program for Bed mobility Need for home safety evaluation - to improve, our physical therapists will perform initial evaluatio n of pt's status upon admission and devise an individualized program for Home Evaluation Need in caregiver upon discharge - to improve, our physical therapists will perform initial evaluati on of pt's status upon admission and devise an individualized program for Caregiver Training Edema - to improve, our physical therapists will perform initial evaluation of pt's status upon admi ssion and devise an individualized program for Elevation Training, and Lymphedema Therapy New precaution - to improve, our physical therapists will perform initial evaluation of pt's status upon admission and devise an individualized program for Patient precaution education Poor endurance - to improve, our physical therapists will perform initial evaluation of pt's status upon admission and devise an individualized program for Endurance Training Weakness - to improve, our physical therapists will perform initial evaluation of pt's status upon a dmission and devise an individualized program for Aquatic Therapy, Neuromuscular Reeducation, and Str engthening Achieving independence - to improve, our physical therapists will perform initial evaluation of pt's status upon admission and devise an individualized program for Community Reintegration Activities - Occupational Therapy ADL deficits - to improve, our occupation therapists will perform initial evaluation of pt's status upon admission and devise an individualized program for Bathing, Bed mobility, Community Reintegratio n, Cooking, Dressing, Eating, Fine Motor Skills, Grooming, Homemaking, Kitchen Mobility, Laundry, Pat ient Education, Safety Awareness, Splinting - Positioning, Transfers(Toilet, Tub, Shower), and Wheel Chair Management Need for care manager - to improve, our occupation therapists will perform initial evaluation of pt's status upon admission and devise an individualized program for Caregiver Training Weakness - to improve, our occupation therapists will perform initial evaluation of pt's status upon admission and devise an individualized program for Aquatic Therapy, Balance, Endurance, UE ROM, and UE strengthening - Other See attached MAR (Medication Administration Record) - Diet Type Continue Regular - Diet - Liquid Texture Continue Regular - Tube Feed Continue N/A - Incontinence Bowel Incontinence - Bleeding Risk Eliquis - DVT Risk due to restricted mobility, age, and obesity - Skin Breakdown Risk due to restricted mobility and age - Cardiac Precaution Monitor blood pressure, heart rate, lower extremity edema, notify MD for shortness of breath or ches t pain Monitor patient for excessive elevation of heart rate and blood pressure during therapy - Fall Precaution Bed alarm TABS alarm Wheel chair alarm - Diet - Solid Texture Continue Regular - Shower allowing shower FUNCTIONAL STATUS: UPDATED AT WEEKLY TEAM CONFERENCE - Bladder Same accident frequency: 7-Ind - No accidents in the past 7 days - Bowel Same accident frequency: 7-Ind - No accidents in the past 7 days - Walking Same score based on distance walked: 0(N/A) Same score based on distance walked: 1(<=50ft) - Wheelchair Same score based on distance traveled: 0(N/A) FUNCTIONAL STATUS: - Self-Care A. Eating Ind B. Grooming Alberto C. Bathing modA D. Dressing - Upper Mickey E. Dressing - Lower modA F. Toileting sup - Sphincter Control G. Bladder control Alberto H. Bowel control Alberto - Transfers Control I. Bed/Chair/Wheelchair Mickey J. Toilet Mickey K. Tub/Shower modA - Locomotion L. Walk/Wheelchair (B) Mickey M. Stairs maxA - Communication N. Comprehension (B) Alberto O. Expression (B) Alberto - Social Cognition P. Social Interaction Ind Q. Problem Solving Ind R. Memory Alberto - Endurance Good - Balance Good - Safety Awareness Good QI SCORES: - Self-Care A. Eating 06-Independent B. Oral hygiene 06-Independent C. Toileting hygiene 01-Dependent E. Shower/bathe self 03-Partial/moderate assistance F. Upper body dressing 06-Independent G. Lower body dressing 03-Partial/moderate assistance H. Putting on/taking off footwear 03-Partial/moderate assistance - Mobility A. Roll left and right 04-Supervision or touching assistance B. Sit to lying 04-Supervision or touching assistance C. Lying to sitting on side of bed 03-Partial/moderate assistance D. Sit to stand 04-Supervision or touching assistance E. Chair/[id number] transfer 04-Supervision or touching assistance F. Toilet transfer 04-Supervision or touching assistance G. Car transfer 04-Supervision or touching assistance I. Walk 10 feet 88-Not attempted due to medical condition or safety concerns J. Walk 50 feet with two turns 88-Not attempted due to medical condition or safety concerns K. Walk 150 feet 88-Not attempted due to medical condition or safety concerns L. Walking 10 feet on uneven surfaces 88-Not attempted due to medical condition or safety concerns M. 1 step (curb) 88-Not attempted due to medical condition or safety concerns N. 4 steps 88-Not attempted due to medical condition or safety concerns O. 12 steps 88-Not attempted due to medical condition or safety concerns P. Picking up object 88-Not attempted due to medical condition or safety concerns R. Wheel 50 feet with two turns 09-Not applicable S. Wheel 150 feet 09-Not applicable - Bladder and Bowel Bladder continence 0-Always continent Bowel continence 2-Frequently incontinent - Endurance Fair - Balance Fair - Safety Awareness Fair CURRENT [facility]. DEFICITS: Mobility, Endurance, Balance, Safety Awareness, and Self-Care SIGNATURE PANEL: (CDT)
[2021-08-11] MEDS: ATORVASTATIN 20 MG TAB PO SCH (19:50)
[2021-08-11] MEDS: TAMSULOSIN 0.4 MG SR CAP PO SCH (19:51)
[2021-08-11] MEDS: MELATONIN 3 MG TABLET PO PRN (19:52)
[2021-08-11] MEDS: TERAZOSIN HCL 1 MG CAP PO SCH (19:52)
[2021-08-11] MEDS: ACETAMINOPHEN 500 MG TAB PO PRN (19:52)
[2021-08-12] MEDS: APIXABAN 5 MG TABLET PO SCH (07:43)
[2021-08-12] MEDS: CRANBERRY FRUIT EXTRACT 400 MG CAP PO SCH (07:44)
[2021-08-12] MEDS: lisinopriL 20 MG TAB PO SCH (07:44)
[2021-08-12] MEDS: POTASSIUM CL SA 10 MEQ TAB PO SCH (07:44)
[2021-08-12] MEDS: carvediloL 12.5 MG TAB PO SCH (07:44)
[2021-08-12] MEDS: allopurinoL 300 MG TAB PO SCH (07:45)
[2021-08-12] MEDS: FUROSEMIDE 40 MG TABLET PO SCH (07:45)
[2021-08-12 07:46] VITALS: BP 162/84
[2021-08-12 08:12] VITALS: TEMP 96.8
[2021-08-12 09:02] VITALS: O2SAT 96
== END 2021-08-12 09:43 | disposition home or self-care (01) | DRG 947 ==
LOC: 5TH 22:09
PROVIDERS: ADMIT Psychiatry & Neurology Neurology with Special Qualifications in Child Neurology; ATTEND Psychiatry & Neurology Neurology with Special Qualifications in Child Neurology
DX: R53.83 Other fatigue (principal); I50.31 Acute diastolic (congestive) heart failure; N39.0 Urinary tract infection, site not specified; I11.0 Hypertensive heart disease with heart failure; I25.10 Atherosclerotic heart disease of native coronary artery without angina pectoris; M10.9 Gout, unspecified; I48.91 Unspecified atrial fibrillation; J44.9 Chronic obstructive pulmonary disease, unspecified; B96.89 Other specified bacterial agents as the cause of diseases classified elsewhere; Z20.822 Contact with and (suspected) exposure to COVID-19
CPT/HCPCS: 36415; 71045; 80048; 81003; 81015; 82040; 83735; 84132; 84134; 85025; 85027; 85610; 85730; 87077; 87086; 87088; 87186; 92523; 97110; 97112; 97116; 97161; 97165; 97530; 97542; U0003